=== PATIENT | male | born 1960 | race Caucasian/White ===

== ENCOUNTER 2020-09-27 08:42 | Outpatient (REF) | payer OTHER, SELFPAY ==
[2020-09-27 09:36] LABS: Basophils Percent Auto 0.7 % (0-2); Eosinophils Absolute Auto 0.2 X10*3/uL (0.0-0.4); Eosinophils Percent Auto 3.5 % (0-4); Hematocrit 44.5 % (42-52); Imm Gran Abs Auto 0.04 X10*3/uL (0.00-0.03); Imm Gran Pct Auto 0.7 % (0.0-0.4); Lymphocytes Absolute Auto 1.2 X10*3/uL (1.2-4.9); Lymphocytes Percent Auto 21.6 % (20-40); Mean Corpuscular HGB Conc 33.7 g/dl (31.0-36.0); Mean Corpuscular Hemoglobin 32.1 pg (27.0-33.0); Mean Corpuscular Volume 95.3 fL (80-98); Mean Platelet Volume 9.6 fL (9.4-12.4); Monocytes Absolute Auto 0.5 X10*3/uL (0.1-1.2); Neutrophils Absolute Auto 3.8 X10*3/uL (2.0-8.3); Neutrophils Percent Auto 65.5 % (45-73); Platelet Count 155 X10*3/uL (160-400); Red Blood Count 4.67 X10*6/uL (4.60-5.80); Red Cell Distribution Width 13.1 % (11.0-16.0); White Blood Count 5.7 X10*3/uL (4.8-10.8)
[2020-09-27 09:37] LABS: MANUAL DIFF FLAG NO
[2020-09-27 10:03] LABS: Estimated Average Glucose 111 mg/dL; Hemoglobin A1c % 5.5 %
[2020-09-27 10:08] LABS: Alanine Aminotransferase 30 U/L (0-40); Albumin Level 4.2 g/dL (3.5-5.0); Alkaline Phosphatase 30 U/L (39-117); Anion Gap 13 (12-20); Aspartate Amino Transferase 37 U/L (5-37); Bilirubin Total 0.9 mg/dL (0.0-1.0); Blood Urea Nitrogen 12 mg/dL (9-16); Calcium 9.3 mg/dL (8.4-10.2); Carbon Dioxide 25 mmol/L (22-29); Chloride 104 mmol/L (96-108); Cholesterol 198 mg/dL; Estimated Glomerular Filt Rate > 60; Glucose Random 138 mg/dL (60-115); HDL Cholesterol 28 mg/dL; LDL Cholesterol Calculated 114 mg/dl; Sodium 138 mmol/L (135-145); Triglycerides 282 mg/dL
[2020-09-27 10:35] LABS: Creatinine Urine 206.97 mg/dL; Microalbum/Creatinine Ratio Ur 9.1 ug/mg cr
[2020-09-27 10:39] LABS: Free T4 (Free Thyroxine) 0.97 ng/dL (0.71-1.85); Prostate Specific Antigen Scr 4.02 ng/mL (<0.05-4.0); Thyroid Stimulating Hormone 2.42 uIU/mL (0.32-4.0); Vitamin D 25-OH Total 16.6 ng/mL (>30)
[2020-09-27 11:21] LABS: Folate > 20.0 ng/mL (> or = 4.0); Vitamin B12 421 pg/mL (200-900)
== END 2020-09-27 08:43 | disposition home or self-care (01) ==
LOC: HO.LAB 08:42
PROVIDERS: PCP Internal Medicine; Visit Provider Internal Medicine
DX: E55.9 Vitamin D deficiency, unspecified (principal); I10 Essential (primary) hypertension; E78.00 Pure hypercholesterolemia, unspecified; E11.65 Type 2 diabetes mellitus with hyperglycemia; E53.8 Deficiency of other specified B group vitamins
CPT/HCPCS: 36415; 80053; 80061; 82043; 82306; 82607; 82746; 83036; 84153; 84439; 84443; 85025

== ENCOUNTER 2020-10-19 10:39 | Day surgery (SDC) | payer OTHER, SELFPAY ==
--- NOTE | 2020-10-18 09:49 | HO.ANESPROP2 ---
Documented by User: Charleen Leidy 10/18/20 09:51 HPI - Anesthesia Eval Consult details Narrative: 60yo M for Colonoscopy [facility] Past Medical History Medical History (Updated 10/19/20 @ 11:00 by Francesca Bennett RN) Cholelithiasis COPD (chronic obstructive pulmonary disease) Essential tremor Fatty liver Folic acid deficiency Hypercholesterolemia Hypertension Psoriasis Tobacco abuse Toe fracture, left Tubular adenoma of colon Vitamin D deficiency Family History Family History (Updated 06/29/20 @ 15:32 by SINDHU Kerr) Father No problems noted. Mother No problems noted. Son No problems noted. Daughter No problems noted. Surgical History Surgical History History of colon resection Social History Social History (Updated 09/01/20 @ 16:12 by Carol Morales MD) Alcohol intake: current Smoking Status: Current every day smoker Packs Per Day: 1 Years Smoked: start 16 years old Have you been hit, kicked, punched, or otherwise hurt by someone within the past year? If so, by whom?: No Advance Directives: No Advance Directives Information Provided: Yes Recently lost weight without trying: No Meds Allergies Allergy/AdvReac Type Severity Reaction Status Date / Time No Known Allergies Allergy Mild NONE Unverified 09/01/20 16:09 Home Medications Medication Instructions Recorded Confirmed Type clobetasol 0.05 % topical gel 1 applic TOPICAL BID 06/29/20 09/01/20 History fenofibrate 160 mg tablet 160 mg PO DAILY 06/29/20 09/01/20 History Exam Exam Date and Time: October 18, 2020 0949 Pertinent Lab Results Pertinent Lab Results: Laboratory Tests 09/27/20 09:03 Hemoglobin A1c % 5.5 Assessment and Plan Assessment Anesthesia Assessment: Chart Reviewed Documented by User: Osiel Terry MD 10/19/20 11:20 [facility] Past Medical History Medical History (Updated 10/19/20 @ 11:00 by Francesca Bennett RN) Cholelithiasis COPD (chronic obstructive pulmonary disease) Essential tremor Fatty liver Folic acid deficiency Hypercholesterolemia Hypertension Psoriasis Tobacco abuse Toe fracture, left Tubular adenoma of colon Vitamin D deficiency Family History Family History (Updated 06/29/20 @ 15:32 by SINDHU Kerr) Father No problems noted. Mother No problems noted. Son No problems noted. Daughter No problems noted. Surgical History Surgical History History of colon resection Social History Social History (Updated 09/01/20 @ 16:12 by Carol Morales MD) Alcohol intake: current Smoking Status: Current every day smoker Packs Per Day: 1 Years Smoked: start 16 years old Have you been hit, kicked, punched, or otherwise hurt by someone within the past year? If so, by whom?: No Advance Directives: No Advance Directives Information Provided: Yes Recently lost weight without trying: No Meds Allergies Allergy/AdvReac Type Severity Reaction Status Date / Time No Known Allergies Allergy Mild NONE Unverified 09/01/20 16:09 Home Medications Medication Instructions Recorded Confirmed Type clobetasol 0.05 % topical gel 1 applic TOPICAL BID 06/29/20 09/01/20 History fenofibrate 160 mg tablet 160 mg PO DAILY 06/29/20 09/01/20 History Exam Airway Mallampati Class: III TM Dist: >3cm Neck ROM: Full Denture: Upper Partial: Lower Loose/Missing/Broken Teeth: No Heart: RRR Lungs: NL Other: A Assessment and Plan Assessment Anesthesia Assessment: Anesthesia Plan Discussed, Smoking Cess. Discussed and Chart Reviewed Final Anesthetic Review NPO: Yes ASA Class: III Final Preanesthetic Review: No Changes in Pt Med Stat, Meds/Allgs Chart Reviewed, Consent Obtained/Reviewed and Anes Risks/Benef Reviewed Patient Risk: Intermediate Procedure Risk: Low Anesthetic Plan Anesthetic Plan: MAC: Disposition: Standard PACU
[2020-10-19 10:45] VITALS: BP 139/93; PULSE 66; RESP 18; TEMP 36.1; O2SAT 97; BMI 66.4
[2020-10-19] MEDS: Lactated Ringers 1,000 ML 100 ML IVCONT (11:09)
[2020-10-19 11:30] VITALS: BMI 30.1
[2020-10-19 12:15] VITALS: BP 114/76; PULSE 78; RESP 16; TEMP 37; O2SAT 100
--- NOTE | 2020-10-19 12:17 | PM.OP ---
Brief Operative Note Date of Service: 10/19/20 Pre-op diagnosis: Heme + stool Post-op diagnosis: other (Colon polyps) Procedure: Colonoscopy to cecum and TI with snare polypectomy, and biopsy and removal of polyp Surgeon: Marco Antonio Carrero Anesthesia: MAC Estimated blood loss (mL): 3.0 Pathology: other (A. Cecal polyps B. Ascending colon polyps C. Polyps at 40cm D. Polyp at 30cm) Condition: stable Disposition: PACU
[2020-10-19 12:30] VITALS: BP 131/81; PULSE 53; RESP 17; TEMP 36.5; O2SAT 97
--- NOTE | 2020-10-19 12:53 | HO.POSTANES ---
Post Anesthesia Evaluation Post Anesthesia Evaluation Vital Signs: Vital Signs Temp Pulse Resp BP Pulse Ox 10/19/20 12:30 97.7 F 53 17 131/81 97 10/19/20 12:15 98.6 F 78 16 114/76 100 10/19/20 10:45 97 F 66 18 139/93 H 97 Anesthesia: Monitored Mental Status: Awake Pain Control: Satisfactory Nausea/Vomiting: None Hydration: Adequate Anesthesia-Related Issues: No Anes. Related Issues
--- NOTE | 2020-10-19 17:05 | OP_ITS ---
SURGEON: Marco Antonio Carrero MD INDICATIONS: The patient presents for evaluation of heme-positive stool. Full consent has been obtained from him for this, including risks of bleeding and perforation. PREOPERATIVE DIAGNOSIS: Heme-positive stool. POSTOPERATIVE DIAGNOSIS: PROCEDURE PERFORMED: Colonoscopy to the cecum and terminal ileum with snare polypectomy, and biopsy and removal of polyp. ESTIMATED BLOOD LOSS: COMPLICATIONS: ANESTHESIA: Monitored anesthesia care. ASSISTANTS: SPECIMENS: POSTOPERATIVE DIAGNOSES: Heme-positive stool, colon polyps, internal hemorrhoids. DESCRIPTION OF PROCEDURE: The patient was placed in the left lateral decubitus position. The digital rectal exam revealed no abnormalities. The Olympus video pediatric colonoscope was entered into the rectum and advanced easily to the cecum. Once in the cecum, I did identify cecal pouch with appendiceal orifice and a normal-appearing ileocecal valve. The terminal ileum was cannulated and appeared normal. Scope was withdrawn back in the colon. In the cecum, was a flat, but raised approximately 8 mm polyp, which was snared and recovered by suction. Just at the junction of the ascending colon and cecum, was another similar polyp, which was also snared and recovered by suction, and placed in the same container. The remainder of the cecum appeared normal. Both polypectomy sites appeared clean, without any sign of residual polyp nor bleeding. The scope was then slowly withdrawn assessing all mucosal surfaces carefully. Preparation was excellent. In the ascending colon, was a flat, but raised approximately 10 mm polyp, which was snared and recovered by suction. The polypectomy site appeared clean, without any sign of residual polyp nor bleeding. At 40 cm, were 2 flat, but raised approximately 8 mm polyps, which were each snared and recovered by suction and placed in the same container. The polypectomy site appeared clean, without any sign of residual polyp nor bleeding. At 20 cm, was a flat approximately 4 mm polyp, which was biopsied and completely removed with cold biopsy forceps. I did not visualize any other polyps, colitis, nor angiodysplasia. The anastomosis appeared to be at approximately 20 cm and appeared normal. In the rectum, scope was retroflexed visualizing small internal hemorrhoids, but no other pathology. The rectal mucosa appeared normal. The scope was straightened out and withdrawn from the patient. He tolerated the procedure well and was returned to the recovery area in stable condition. IMPRESSION: 1. Colon polyps, status post snare polypectomy, and biopsy and removal. 2. Internal hemorrhoids. PLAN: The results of the pathology will be checked. Assuming these to be tubular adenomas, I would recommend a followup colonoscopy in 5 years for further screening. He will otherwise see me on a p.r.n. basis. He was advised not to use any aspirin and NSAIDs for 1 week. This has been discussed with his . MD JOSE Nichols/CARRIE / [id number] MTDD
== END 2020-10-19 12:50 | disposition home or self-care (01) ==
PROVIDERS: PCP Internal Medicine; Visit Provider Internal Medicine
PROC: 0DJD8ZZ Inspection of Lower Intestinal Tract, Via Natural or Artificial Opening Endoscopic (ICD-10-PCS; CPT 45378; principal; 2020-10-19 12:00)
DX: R19.5 Other fecal abnormalities (principal); Z86.010 Personal history of colon polyps; D12.0 Benign neoplasm of cecum; D12.2 Benign neoplasm of ascending colon; D12.4 Benign neoplasm of descending colon; D12.5 Benign neoplasm of sigmoid colon; J44.9 Chronic obstructive pulmonary disease, unspecified; I10 Essential (primary) hypertension; F17.210 Nicotine dependence, cigarettes, uncomplicated; Z79.899 Other long term (current) drug therapy
CPT/HCPCS: 45385; 45380; 88305

== ENCOUNTER 2021-03-09 09:59 | Outpatient (REF) | payer OTHER, SELFPAY ==
[2021-03-09 11:30] LABS: Alanine Aminotransferase 49 U/L (0-40); Alkaline Phosphatase 42 U/L (39-117); Anion Gap 12 (12-20); Aspartate Amino Transferase 55 U/L (5-37); Bilirubin Total 0.6 mg/dL (0.0-1.0); Blood Urea Nitrogen 12 mg/dL (9-16); Calcium 9.4 mg/dL (8.4-10.2); Carbon Dioxide 24 mmol/L (22-29); Chloride 104 mmol/L (96-108); Cholesterol 197 mg/dL; Estimated Glomerular Filt Rate > 60; Glucose Random 131 mg/dL (60-115); HDL Cholesterol 25 mg/dL; LDL Cholesterol Calculated 112 mg/dl; Potassium 4.1 mmol/L (3.3-5.1); Sodium 136 mmol/L (135-145); Total Protein 6.8 g/dL (6.5-8.0); Triglycerides 302 mg/dL
[2021-03-09 12:12] LABS: PSA,Total (Free>4and<10) 5.67 ng/mL (0.00-4.00)
[2021-03-10 10:36] LABS: Free Prostate Spec Ag 0.7 ng/mL; Percent Free Prostate Spec Ag 15 % (calc) (>25); Prostate Specific Ag Total 4.7 ng/mL (< OR = 4.0)
== END 2021-03-09 10:00 | disposition home or self-care (01) ==
LOC: HO.LAB 09:59
PROVIDERS: PCP Internal Medicine; Visit Provider Internal Medicine
DX: Z12.5 Encounter for screening for malignant neoplasm of prostate (principal); E78.00 Pure hypercholesterolemia, unspecified; R97.20 Elevated prostate specific antigen [PSA]
CPT/HCPCS: 36415; 80053; 80061; 84153; 84154

== ENCOUNTER 2021-08-31 08:08 | Outpatient (REF) | payer OTHER, SELFPAY ==
[2021-08-31 09:17] LABS: Creatinine Urine 187.11 mg/dL
[2021-08-31 09:42] LABS: PSA,Total (Free>4and<10) 4.68 ng/mL (0.00-4.00)
[2021-09-01 12:37] LABS: Free Prostate Spec Ag 0.5 ng/mL; Percent Free Prostate Spec Ag 12 % (calc) (>25); Prostate Specific Ag Total 4.3 ng/mL (< OR = 4.0)
== END 2021-08-31 08:09 | disposition home or self-care (01) ==
LOC: HO.LAB 08:08
PROVIDERS: PCP Internal Medicine; Visit Provider Internal Medicine
DX: Z12.5 Encounter for screening for malignant neoplasm of prostate (principal); E11.65 Type 2 diabetes mellitus with hyperglycemia; R97.20 Elevated prostate specific antigen [PSA]
CPT/HCPCS: 36415; 84153; 84154

== ENCOUNTER → 2021-09-28 11:10 | Outpatient (BNVA) | payer OTHER, SELFPAY | PROVIDERS: PCP Internal Medicine; Referring Provider Internal Medicine; Visit Provider Surgery ==

== ENCOUNTER 2021-10-19 10:45 | Outpatient (REF) | payer OTHER, SELFPAY ==
[2021-10-19 10:50] VITALS: BP 164/74; PULSE 97; RESP 16; TEMP 36.2; O2SAT 98; BMI 32.3
[2021-10-19 11:23] VITALS: BP 144/66; PULSE 65; RESP 16; O2SAT 96
--- NOTE | 2021-10-19 13:37 | P.OP_ITS ---
Operative Note Operative Note Date of Service: 10/19/21 Narrative: Preoperative diagnosis: Skin cyst posterior right neck Postoperative diagnosis: Same Procedure: Excision of skin cyst posterior right neck Surgeon: Christopher Thakur MD Youth Manager: None Anesthesia: Local Indications for procedure: 61-year-old male patient with an enlarging cyst of the right posterior neck measuring approximately 1.5 cm. Patient is requested excision. Operative findings: 1.5 cm noninfected epidermal inclusion cyst posterior right neck Specimen: Cyst posterior right neck Estimated blood loss: 1 mL Complications: None Procedure details: Patient was brought to the minor surgery suite and placed in a prone position with his head turned to the right. The site of surgery was confirmed by the patient in the right posterior neck. After assuring informed consent the skin was prepped with Betadine and draped in a sterile fashion. Local anesthesia consisting 1% lidocaine with epinephrine was then infiltrated surrounding the cyst. A transverse elliptical incision was then created carried out through subcutaneous tissue and around the cyst wall. Sharp dissection was then used to dissect the cyst from the surrounding subcutaneous tissue. Lesion was completely excised and sent to pathology for further examination. After assuring adequate hemostasis with light pressure, the skin was closed using interrupted 4-0 nylon sutures. Sterile dressings consisting of 2 x 2 gauz e and Tegaderm were then applied. The patient tolerated the procedure well. Sponge, instrument, and needle counts reported as correct. Patient was discharged home in stable condition.
== END 2021-10-19 10:46 | disposition home or self-care (01) ==
LOC: HO.MS 10:45
PROVIDERS: PCP Internal Medicine; Visit Provider Surgery
PROC: (CPT 11422; principal; 2021-10-19 11:00)
DX: L72.0 Epidermal cyst (principal)
CPT/HCPCS: 11422; 88304

== ENCOUNTER → 2021-10-31 09:44 | Outpatient (BNVA) | payer OTHER, SELFPAY | PROVIDERS: PCP Internal Medicine; Referring Provider Internal Medicine; Visit Provider Surgery ==

== ENCOUNTER 2021-12-20 09:08 | Outpatient (REF) | payer OTHER, SELFPAY ==
[2021-12-20 09:24] LABS: MANUAL DIFF FLAG NO
[2021-12-20 09:36] LABS: Basophils Absolute Auto 0.1 X10*3/uL (0.0-0.2); Basophils Percent Auto 0.9 % (0-2); Eosinophils Absolute Auto 0.3 X10*3/uL (0.0-0.4); Eosinophils Percent Auto 3.9 % (0-4); Hemoglobin 14.2 g/dl (14.0-18.0); Imm Gran Abs Auto 0.05 X10*3/uL (0.00-0.03); Imm Gran Pct Auto 0.8 % (0.0-0.4); Lymphocytes Absolute Auto 1.5 X10*3/uL (1.2-4.9); Mean Corpuscular HGB Conc 33.8 g/dl (31.0-36.0); Mean Corpuscular Hemoglobin 30.7 pg (27.0-33.0); Mean Corpuscular Volume 90.9 fL (80.0-98.0); Mean Platelet Volume 10.1 fL (9.4-12.4); Monocytes Absolute Auto 0.4 X10*3/uL (0.1-1.2); Monocytes Percent Auto 5.7 % (2-11); Neutrophils Absolute Auto 4.4 x10*3/uL (2.0-8.3); Neutrophils Percent Auto 65.7 % (45-73); Platelet Count 155 X10*3/uL (160-400); Red Blood Count 4.62 X10*6/uL (4.60-5.80); Red Cell Distribution Width 12.2 % (11.0-16.0); White Blood Count 6.6 X10*3/uL (4.8-10.8)
[2021-12-20 10:33] LABS: Alanine Aminotransferase 63 U/L (0-40); Albumin Level 3.9 g/dL (3.5-5.0); Alkaline Phosphatase 63 U/L (39-117); Anion Gap 12 (12-20); Aspartate Amino Transferase 70 U/L (5-37); Bilirubin Total 0.9 mg/dL (0.0-1.0); Blood Urea Nitrogen 12 mg/dL (9-16); Calcium 9.8 mg/dL (8.4-10.2); Carbon Dioxide 25 mmol/L (22-29); Chloride 100 mmol/L (96-108); Cholesterol 197 mg/dL; Estimated Glomerular Filt Rate 56; Glucose Fasting 387 mg/dL (60-99); HDL Cholesterol 22 mg/dL; Potassium 4.4 mmol/L (3.3-5.1); Sodium 133 mmol/L (135-145); Total Protein 6.8 g/dL (6.5-8.0); Triglycerides 547 mg/dL
[2021-12-20 10:57] LABS: Creatinine Urine 89.19 mg/dL; Microalbum/Creatinine Ratio Ur 16.8 ug/mg cr
== END 2021-12-20 09:09 | disposition home or self-care (01) ==
LOC: HO.LAB 09:08
PROVIDERS: PCP Internal Medicine; Visit Provider Nurse Practitioner Family
DX: E11.9 Type 2 diabetes mellitus without complications (principal); E78.00 Pure hypercholesterolemia, unspecified; I10 Essential (primary) hypertension
CPT/HCPCS: 36415; 80053; 80061; 82043; 85025

== ENCOUNTER 2022-03-21 06:52 | Outpatient (REF) | payer OTHER, SELFPAY ==
[2022-03-21 07:01] LABS: MANUAL DIFF FLAG NO
[2022-03-21 07:28] LABS: Basophils Absolute Auto 0.1 X10*3/uL (0.0-0.2); Basophils Percent Auto 1.1 % (0-2); Eosinophils Absolute Auto 0.5 X10*3/uL (0.0-0.4); Eosinophils Percent Auto 6.8 % (0-4); Hematocrit 46.9 % (42.0-52.0); Hemoglobin 15.6 g/dl (14.0-18.0); Imm Gran Abs Auto 0.05 X10*3/uL (0.00-0.03); Imm Gran Pct Auto 0.8 % (0.0-0.4); Lymphocytes Absolute Auto 1.6 X10*3/uL (1.2-4.9); Lymphocytes Percent Auto 23.6 % (20-40); Mean Corpuscular HGB Conc 33.3 g/dl (31.0-36.0); Mean Corpuscular Hemoglobin 30.8 pg (27.0-33.0); Mean Corpuscular Volume 92.7 fL (80.0-98.0); Mean Platelet Volume 9.4 fL (9.4-12.4); Monocytes Absolute Auto 0.4 X10*3/uL (0.1-1.2); Monocytes Percent Auto 6.2 % (2-11); Neutrophils Percent Auto 61.5 % (45-73); Platelet Count 160 X10*3/uL (160-400); Red Blood Count 5.06 X10*6/uL (4.60-5.80); Red Cell Distribution Width 13.6 % (11.0-16.0); White Blood Count 6.6 X10*3/uL (4.8-10.8)
[2022-03-21 07:35] LABS: Estimated Average Glucose 123 mg/dL; Hemoglobin A1c % 5.9 %
[2022-03-21 07:49] LABS: Alanine Aminotransferase 23 U/L (0-40); Albumin Level 4.1 g/dL (3.5-5.0); Alkaline Phosphatase 43 U/L (39-117); Anion Gap 13 (12-20); Aspartate Amino Transferase 25 U/L (5-37); Bilirubin Total 0.7 mg/dL (0.0-1.0); Blood Urea Nitrogen 10 mg/dL (9-16); Calcium 9.6 mg/dL (8.4-10.2); Carbon Dioxide 25 mmol/L (22-29); Chloride 104 mmol/L (96-108); Cholesterol 183 mg/dL; Estimated Glomerular Filt Rate > 60; Glucose Fasting 126 mg/dL (60-99); HDL Cholesterol 27 mg/dL; LDL Cholesterol Calculated 117 mg/dl; Potassium 4.1 mmol/L (3.3-5.1); Sodium 138 mmol/L (135-145); Total Protein 6.9 g/dL (6.5-8.0); Triglycerides 196 mg/dL
[2022-03-21 08:22] LABS: PSA,Total (Free>4and<10) 4.06 ng/mL (0.00-4.00)
[2022-03-22 12:06] LABS: Free Prostate Spec Ag 0.4 ng/mL; Percent Free Prostate Spec Ag 11 % (calc) (>25); Prostate Specific Ag Total 3.8 ng/mL (< OR = 4.0)
== END 2022-03-21 06:53 | disposition home or self-care (01) ==
LOC: HO.LAB 06:52
PROVIDERS: PCP Internal Medicine; Visit Provider Nurse Practitioner Family
DX: Z12.5 Encounter for screening for malignant neoplasm of prostate (principal); I10 Essential (primary) hypertension; E78.00 Pure hypercholesterolemia, unspecified; E11.9 Type 2 diabetes mellitus without complications; R97.20 Elevated prostate specific antigen [PSA]
CPT/HCPCS: 36415; 80053; 80061; 83036; 84153; 84154; 85025

== ENCOUNTER 2022-09-17 06:42 | Outpatient (REF) | payer OTHER, SELFPAY ==
[2022-09-17 08:20] LABS: Estimated Average Glucose 103 mg/dL; Hemoglobin A1c % 5.2 %
[2022-09-17 09:10] LABS: Alanine Aminotransferase 28 U/L (0-40); Albumin Level 4.2 g/dL (3.5-5.0); Alkaline Phosphatase 26 U/L (39-117); Anion Gap 14 (12-20); Aspartate Amino Transferase 27 U/L (5-37); Blood Urea Nitrogen 15 mg/dL (9-16); Calcium 9.3 mg/dL (8.4-10.2); Carbon Dioxide 26 mmol/L (22-29); Chloride 103 mmol/L (96-108); Cholesterol 210 mg/dL; Estimated Glomerular Filt Rate > 60; Glucose Random 128 mg/dL (60-115); HDL Cholesterol 32 mg/dL; LDL Cholesterol Calculated 122 mg/dl; Potassium 4.1 mmol/L (3.3-5.1); Prostate Specific Antigen Scr 6.73 ng/mL (<0.05-4.0); Sodium 139 mmol/L (135-145); Total Protein 6.6 g/dL (6.5-8.0); Triglycerides 283 mg/dL
== END 2022-09-17 06:43 | disposition home or self-care (01) ==
LOC: HO.LAB 06:42
PROVIDERS: PCP Internal Medicine; Visit Provider Internal Medicine
DX: Z12.5 Encounter for screening for malignant neoplasm of prostate (principal); R97.20 Elevated prostate specific antigen [PSA]; E78.00 Pure hypercholesterolemia, unspecified
CPT/HCPCS: 36415; 80053; 80061; 83036; 84153

== ENCOUNTER → 2022-10-16 09:58 | Outpatient (BNVA) | payer OTHER, SELFPAY | PROVIDERS: PCP Internal Medicine; Visit Provider Nurse Practitioner Family | DX: R97.20 Elevated prostate specific antigen [PSA] (principal) ==

== ENCOUNTER 2022-10-25 10:33 | Outpatient (REF) | payer OTHER, SELFPAY ==
[2022-10-25 13:20] LABS: PSA,Total (Free>4and<10) 7.59 ng/mL (0.00-4.00)
[2022-10-26 09:53] LABS: Free Prostate Spec Ag 0.7 ng/mL; Percent Free Prostate Spec Ag 11 % (calc) (>25); Prostate Specific Ag Total 6.2 ng/mL (< OR = 4.0)
== END 2022-10-25 10:34 | disposition home or self-care (01) ==
LOC: HO.LAB 10:33
PROVIDERS: PCP Internal Medicine; Visit Provider Nurse Practitioner Family
DX: Z12.5 Encounter for screening for malignant neoplasm of prostate (principal); R97.20 Elevated prostate specific antigen [PSA]
CPT/HCPCS: 36415; 84153; 84154

== ENCOUNTER → 2022-11-09 10:29 | Outpatient (BNVA) | payer OTHER, SELFPAY | PROVIDERS: PCP Internal Medicine; Visit Provider Nurse Practitioner Family | DX: Z13.89 Encounter for screening for other disorder (principal) ==

== ENCOUNTER 2022-11-20 06:59 | Day surgery (SDC) | payer OTHER, SELFPAY ==
[2022-11-13 11:16] VITALS: BMI 29.8
[2022-11-13 12:43] VITALS: BMI 30.1
[2022-11-20 07:13] LABS: Glucose, Whole Blood 147 mg/dL (60-115)
[2022-11-20 07:22] VITALS: BP 170/96; PULSE 61; RESP 16; TEMP 36.3; O2SAT 96
[2022-11-20] MEDS: Lactated Ringers 1,000 ML 50 ML IVCONT (07:48)
--- NOTE | 2022-11-20 08:05 | P.CONAN_ITS ---
HPI - Anesthesia Eval Consult details Narrative: 62 M for prostate needle biopsy PMF Active Problems Active Problems: All Active Problems (Updated 10/16/22 @ 10:48 by TAYO King) Type 2 diabetes mellitus with hyperglycemia (Acute) PSA elevation (Acute) Tubular adenoma of colon (Acute) Skin cyst (Acute) Elevated liver enzymes (Acute) Elevated PSA (Acute) COPD (chronic obstructive pulmonary disease) (Acute) Tobacco abuse (Acute) Hypercholesterolemia (Acute) Vitamin D deficiency (Acute) Hypertension (Acute) Folic acid deficiency (Acute) Past Medical History Medical History Annual physical exam Cholelithiasis COPD (chronic obstructive pulmonary disease) Essential tremor Fatty liver Folic acid deficiency Frequency of urination Hypercholesterolemia Hypertension Psoriasis Right otitis media Tobacco abuse Toe fracture, left Tubular adenoma of colon Type 2 diabetes mellitus Vision changes Vitamin D deficiency Functional capacity: independent ambulation Family History Family History Father No problems noted. Mother No problems noted. Son No problems noted. Daughter No problems noted. Family history of problems with anesthesia: No Surgical History Surgical History (Updated 11/13/22 @ 12:42 by Sunita Rich RN) History of colon resection Hx of colonoscopy Hx of excision of dermoid cyst History of Problems with Anesthesia: No Social History Social History (Updated 11/13/22 @ 12:45 by Sunita Rich RN) Household Members: Spouse Housing: House Are you a primary child day care provider to a significant other at home: No Do you presently have visiting nurse or other home services: No Alcohol intake: current Patient Tobacco Use Status: Current everyday Tobacco user Tobacco use type: Cigarette Cigarette Packs Per Day: 1 Cigarettes Per Day: 25 Years Smoked: 50 Smoked in Last 30 Days: Yes e-Cigarette/Vaping Use: Never Used Second Hand Smoke Exposure: No Use of substances other than those prescribed or required for medical reasons: Yes Substance Use Frequency: Daily Have you been hit, kicked, punched, or otherwise hurt by someone within the past year? If so, by whom?: No Are you DNR?: No Advance Directives: No Advance Directives Information Provided: Yes Advance Directives on File: No Recently lost weight without trying: No Nutrition Risks: No Nutritional Risk service: No Current occupational status: retired Cognitive needs: No Hearing needs: No Vision needs: Yes (glasses) Meds Allergies Allergy/AdvReac Type Severity Reaction Status Date / Time simvastatin AdvReac Intermediate Diarrhea Verified 11/13/22 12:42 Active Medications: Current Medications Lactated Ringer's (Lr) 1,000 mls @ 50 mls/hr IVCONT .Q20H SALVADOR Last Admin: 11/20/22 07:48 Dose: 50 mls/hr Home Medications Medication Instructions Recorded Confirmed Last Taken Type clobetasol 0.05 % topical gel 1 applic topical BID 06/29/20 11/20/22 Unknown History Exam Exam Date and Time: November 20, 2022 0805 Height,Weight and Vital Signs: Height 5 ft 10 in Weight 95.254 kg Last Vital Signs Temp 97.4 F 11/20/22 07:22 Pulse 61 11/20/22 07:22 Resp 16 11/20/22 07:22 BP 170/96 H 11/20/22 07:22 Pulse Ox 96 11/20/22 07:22 O2 Del Method 11/20/22 07:22 Pertinent Lab Results Pertinent Lab Results: Laboratory Tests 11/20/22 07:10 POC Glucose 147 H Airway Mallampati Class: IV Denture: Upper Partial: Lower Loose/Missing/Broken Teeth: Yes (Poor dentition ) Heart: S1,S2 Lungs: diminished breath sounds Assessment and Plan Assessment Anesthesia Assessment: Anesthesia Plan Discussed and Chart Reviewed Final Anesthetic Review Family History of Problems with Anesthesia: No History of Problems with Anesthesia: No NPO: Yes ASA Class: III Final Preanesthetic Review: Meds/Allgs Chart Reviewed, Consent Obtained/Reviewed and Anes Risks/Benef Reviewed Patient Risk: Intermediate Procedure Risk: Intermediate Anesthetic Plan Anesthetic Plan: GA Disposition: Standard PACU
--- NOTE | 2022-11-20 08:24 | MHC.SHP ---
Pre-Procedural Eval Section A Date of Service: 11/20/22 The patient is an INPATIENT: No The History & Physical has been completed within 30 days and I have reviewed it.: Yes Section B Chief Complaint: Elevated prostate specific antigen [PSA] Allergies: Allergies Allergy/AdvReac Type Severity Reaction Status Date / Time simvastatin AdvReac Intermediate Diarrhea Verified 11/13/22 12:42 Plan I have reviewed the history and physical and performed a pertinent physical examination on my patient. No changes have occurred unless specified. Transrectal ultrasound guided biopsy of prostate Time Spent With Patient Time: Total time managing care of this patient today ____ minutes.
[2022-11-20 09:21] VITALS: BP 119/70; PULSE 61; RESP 16; TEMP 36.5; O2SAT 99
[2022-11-20 09:26] VITALS: BP 134/80; PULSE 66; RESP 18; O2SAT 96
[2022-11-20 09:31] VITALS: BP 139/80; PULSE 71; RESP 18; O2SAT 97
--- NOTE | 2022-11-20 09:32 | W.PM.OPN ---
Operative Note Operative Note Date of Service: 11/20/22 Narrative: PreOperative Diagnosis:? ? Elevated PSA Post Operative Diagnosis:??Elevated PSA Procedure:?1. Transrectal ultrasound guided biopsy of the prostate 12 core 2. Transrectal ultrasound measurement of prostate 3. Transrectal ultrasound guided pudendal nerve block Surgeon:?Dr Lesly Pritchard Anesthesia:? General Indications for procedure: Elevated PSA. The patient had PSA drawn on 10/25/22 at 2 different times, results (7.59 ng/mL) and (6.2ng/mL with %free 11) Procedure: After informed consent was verified the patient was brought into the procedure room, General anesthesia was instituted and he was repositioned on the procedure table in left lateral position. Patient identity confirmed. Safety pause time-out performed. Preoperative antibiotics confirmed. Digital rectal exam performed to dilate rectal sphincter, iodine mixed with lubricant jelly 30 cc placed per rectum. Ultrasound probe was placed per rectum. The prostate was visualized. The prostate was measured height 4.18 cm, width 3.77 cm, length 5.05 cm with a volume of 41.7. Prostatic calcifications were visualized. And ultrasound guided pudendal nerve block was performed using 8 mL of 1% lidocaine a 12 core biopsy was performed from the left base, left mid, left apex and right base, mid, apex 2 biopsies from each section. The ultrasound probe was removed and digital palpation of the prostate for 1-2 minutes for hemostasis was performed. The patient was brought out of general. The patient tolerated the procedure well. The patient taken to the in stable condition. The patient is instructed to complete his antibiotics and to call for any concerns. Complications: None
[2022-11-20 09:36] VITALS: BP 142/80; PULSE 61; RESP 18; O2SAT 96
[2022-11-20 09:51] VITALS: BP 132/83; PULSE 60; RESP 18; TEMP 36.1; O2SAT 96
== END 2022-11-20 10:10 | disposition home or self-care (01) ==
PROVIDERS: PCP Internal Medicine; Visit Provider Urology
PROC: (CPT 55700; principal; 2022-11-20 08:40)
DX: R97.20 Elevated prostate specific antigen [PSA] (principal); N42.9 Disorder of prostate, unspecified; R35.0 Frequency of micturition; J44.9 Chronic obstructive pulmonary disease, unspecified; I10 Essential (primary) hypertension; E78.00 Pure hypercholesterolemia, unspecified; E55.9 Vitamin D deficiency, unspecified; G25.0 Essential tremor; K80.20 Calculus of gallbladder without cholecystitis without obstruction; K76.0 Fatty (change of) liver, not elsewhere classified; E11.9 Type 2 diabetes mellitus without complications; Z79.84 Long term (current) use of oral hypoglycemic drugs; Z79.899 Other long term (current) drug therapy; Z88.8 Allergy status to other drugs, medicaments and biological substances; F17.210 Nicotine dependence, cigarettes, uncomplicated
CPT/HCPCS: 55700; 76942; 82947; 88305; 88344; J1100; J1956; J2250; J2370; J2405; J3010

== ENCOUNTER → 2022-11-29 09:44 | Outpatient (BNVA) | payer OTHER, SELFPAY | PROVIDERS: PCP Internal Medicine; Visit Provider Urology | DX: Z13.89 Encounter for screening for other disorder (principal) ==

== ENCOUNTER 2023-03-15 09:52 | Outpatient (REF) | payer OTHER, SELFPAY ==
[2023-03-15 11:22] LABS: Estimated Average Glucose 111 mg/dL; Hemoglobin A1c % 5.5 %
[2023-03-15 12:00] LABS: Alanine Aminotransferase 55 U/L (0-40); Albumin Level 4.2 g/dL (3.5-5.0); Alkaline Phosphatase 31 U/L (39-117); Anion Gap 15 (12-20); Aspartate Amino Transferase 53 U/L (5-37); Blood Urea Nitrogen 14 mg/dL (9-16); Calcium 9.9 mg/dL (8.4-10.2); Carbon Dioxide 25 mmol/L (22-29); Chloride 104 mmol/L (96-108); Cholesterol 235 mg/dL; Estimated Glomerular Filt Rate > 60; Glucose Random 154 mg/dL (60-115); HDL Cholesterol 37 mg/dL; LDL Cholesterol Calculated 136 mg/dl; Potassium 3.8 mmol/L (3.3-5.1); Sodium 140 mmol/L (135-145); Total Protein 7.3 g/dL (6.5-8.0); Triglycerides 310 mg/dL
== END 2023-03-15 09:53 | disposition home or self-care (01) ==
LOC: HO.LAB 09:52
PROVIDERS: Absent Provider Internal Medicine; PCP Internal Medicine; Visit Provider Urology
DX: E78.00 Pure hypercholesterolemia, unspecified (principal); E11.65 Type 2 diabetes mellitus with hyperglycemia
CPT/HCPCS: 36415; 80053; 80061; 83036

== ENCOUNTER → 2023-04-01 11:26 | Outpatient (BNVA) | payer OTHER, SELFPAY | PROVIDERS: Visit Provider Urology | DX: R97.20 Elevated prostate specific antigen [PSA] (principal) ==

== ENCOUNTER 2023-09-18 09:44 | Outpatient (REF) | payer OTHER, SELFPAY ==
[2023-09-18 10:02] LABS: MANUAL DIFF FLAG NO
[2023-09-18 10:39] LABS: Estimated Average Glucose 120 mg/dL; Hemoglobin A1C 152.0649 umol/L; Hemoglobin A1c % 5.8 % (<6.0)
[2023-09-18 10:54] LABS: Basophils Absolute Auto 0.1 X10*3/uL (0.0-0.2); Basophils Percent Auto 1.1 % (0-2); Eosinophils Absolute Auto 0.2 X10*3/uL (0.0-0.4); Eosinophils Percent Auto 5.3 % (0-4); Hematocrit 43.9 % (42.0-52.0); Hemoglobin 14.7 g/dl (14.0-18.0); Imm Gran Abs Auto 0.03 X10*3/uL (0.00-0.03); Imm Gran Pct Auto 0.7 % (0.0-0.4); Lymphocytes Absolute Auto 1.2 X10*3/uL (1.2-4.9); Lymphocytes Percent Auto 25.8 % (20-40); Mean Corpuscular HGB Conc 33.5 g/dl (31.0-36.0); Mean Corpuscular Hemoglobin 32.9 pg (27.0-33.0); Mean Corpuscular Volume 98.2 fL (80.0-98.0); Mean Platelet Volume 9.2 fL (9.4-12.4); Monocytes Absolute Auto 0.4 X10*3/uL (0.1-1.2); Monocytes Percent Auto 7.7 % (2-11); Neutrophils Absolute Auto 2.7 x10*3/uL (2.0-8.3); Neutrophils Percent Auto 59.4 % (45-73); Platelet Count 140 X10*3/uL (160-400); Red Blood Count 4.47 X10*6/uL (4.60-5.80); Red Cell Distribution Width 13.5 % (11.0-16.0); White Blood Count 4.5 X10*3/uL (4.8-10.8)
[2023-09-18 11:14] LABS: Alanine Aminotransferase 52 U/L (0-40); Albumin Level 4.2 g/dL (3.5-5.0); Alkaline Phosphatase 28 U/L (39-117); Anion Gap 15 (12-20); Aspartate Amino Transferase 94 U/L (5-37); Bilirubin Total 0.7 mg/dL (0.0-1.0); Blood Urea Nitrogen 14 mg/dL (9-16); Calcium 9.7 mg/dL (8.4-10.2); Carbon Dioxide 25 mmol/L (22-29); Chloride 104 mmol/L (96-108); Cholesterol 220 mg/dL (<200); Estimated Glomerular Filt Rate 58; Glucose Random 142 mg/dL (60-115); HDL Cholesterol 35 mg/dL (>40); LDL Cholesterol Calculated 127 mg/dL (<100); Sodium 140 mmol/L (135-145); Total Protein 7.4 g/dL (6.5-8.0); Triglycerides 291 mg/dL (<150)
[2023-09-18 11:21] LABS: PSA,Total (Free>4and<10) 7.63 ng/mL (0.00-4.00)
[2023-09-18 11:30] LABS: Free T4 (Free Thyroxine) 0.92 ng/dL (0.71-1.85); Thyroid Stimulating Hormone 2.63 uIU/mL (0.32-4.0)
[2023-09-19 12:24] LABS: Percent Free Prostate Spec Ag 13 % (calc) (>25); Prostate Specific Ag Total 7.7 ng/mL (< OR = 4.0)
== END 2023-09-18 09:45 | disposition home or self-care (01) ==
LOC: HO.LAB 09:44
PROVIDERS: PCP Internal Medicine; Visit Provider Internal Medicine
DX: Z12.5 Encounter for screening for malignant neoplasm of prostate (principal); N42.31 Prostatic intraepithelial neoplasia; E78.00 Pure hypercholesterolemia, unspecified
CPT/HCPCS: 36415; 80053; 80061; 83036; 84153; 84154; 84439; 84443; 85025

== ENCOUNTER 2023-09-20 10:54 | Outpatient (AMB) | payer OTHER, SELFPAY ==
[2023-09-20 10:56] VITALS: BP 156/90; PULSE 66; O2SAT 100; BMI 30.9
--- NOTE | 2023-09-20 10:56 | A.OFFPC_ITS ---
Vital Signs 09/20/23 10:56 Height 5 ft 10 in Weight 215 lb 0.8 oz BMI 30.9 BP 156/90 H Blood Pressure Location Lt brachial Position Sitting Pulse 66 Pulse Source Pulse Oximeter Pulse Oximetry (%) 100 Oxygen Delivery Method Room Air Intake Visit Reasons: Annual Exam Intake Note: Patient is here today for a physical. Prosthetic Technician Required: No Allergies finasteride Adverse Reaction (Intermediate, Verified 09/20/23 11:28) premature ejaculation simvastatin Adverse Reaction (Intermediate, Verified 09/20/23 10:57) Diarrhea Medication List - Last Reconciled 09/20/23 by Carol Morales MD blood sugar diagnostic (FreeStyle Lite Strips) USE TO TEST ONCE DAILY blood-glucose meter (FreeStyle Lite Meter kit) As directed clobetasol 0.05% 1 appl topical BID ezetimibe (Zetia) 10 mg PO DAILY fenofibrate 160 mg PO DAILY folic acid 1 mg PO DAILY FreeStyle Lancets (lancets) Test once Daily NS hydrochlorothiazide 25 mg PO DAILY labetalol 300 mg PO BID lisinopril 40 mg PO DAILY 90 days Tobacco use date assessed: 09/20/23 Fall risk assessment: No Falls in past year Last assessed Fall Risk: 09/20/23 Dental Screening Dental Screen Date: 09/20/23 Did you have a dental visit in the last 12 months?: No Did you have a dental problem in the last 6 months where you did not have access to dental care?: No HPI Annual Exam HPI Details 63-year-old obese male smoker with COPD, controlled diabetes mellitus hypertension hypercholesterolemia BPH coming in for physical exam. Last seen in February 2023. Patient just had blood work August and is here for physical exam. Patient is up-to-date with colonoscopy 2020 tubular adenoma. 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 Patient has also seen the ear nose and throat presently on finasteride and continue to follow-up with prostate number diagnosis of prostatic intraepithelial neoplasia. [facility] Medical History (Updated 09/20/23 @ 11:20 by Carol Morales MD) Type 2 diabetes mellitus Vision changes Frequency of urination Annual physical exam Right otitis media Toe fracture, left Cholelithiasis COPD (chronic obstructive pulmonary disease) Psoriasis Essential tremor Tubular adenoma of colon Fatty liver Tobacco abuse Hypercholesterolemia Vitamin D deficiency Hypertension Folic acid deficiency Surgical History Hx of colonoscopy Hx of excision of dermoid cyst History of colon resection Family History (Updated 03/20/23 @ 10:58 by Monica Ravi CMA) Father No problems noted. Mother No problems noted. Son No problems noted. Daughter No problems noted. Social History (Updated 09/20/23 @ 11:29 by Carol Morales MD) Household Members: Spouse Housing: House Are you a primary animal caretaker to a significant other at home: No Do you presently have visiting nurse or other home services: No Alcohol intake: current Comment: QD 2-3 drinks Patient Tobacco Use Status: Current everyday Tobacco user Tobacco use type: Cigarette Cigarette Packs Per Day: 1 Cigarettes Per Day: 25 Years Smoked: 50 e-Cigarette/Vaping Use: Never Used Second Hand Smoke Exposure: No service: No Current occupational status: retired Cognitive needs: No Hearing needs: No Vision needs: Yes (glasses) Questionnaire PHQ-9 Over the last 2 weeks, how often have you been bothered by any of the following problems? 1. Little interest or pleasure in doing things: not at all 2. Feeling down, depressed, or hopeless: not at all 3. Trouble falling or staying asleep, or sleeping too much: not at all 4. Feeling tired or having little energy: not at all 5. Poor appetite or overeating: not at all 6. Feeling bad about yourself - or that you are a failure or have let yourself or your family down: not at all 7. Trouble concentrating on things, such as reading the newspaper or watching television: not at all 8. Moving or speaking so slowly that other people could have noticed. Or the opposite - being so fidgety or restless that you have been moving around a lot more than usual: not at all 9. Thoughts that you would be better off or of hurting yourself in some way: not at all Total score: 0 Depression Screening Interpretation: Negative Depression Screening Done: Yes Source: Developed by Drs. Marco Antonio Christensen, Farhana Vaughn, Alfredito hicks nd colleagues, with an educational allan from [employer]. Thrive Questionnaire Date Thrive assessed: 03/20/23 AUDIT C Alcohol Use Questionnaire (AUDIT-C) 1. How often do you have a drink containing alcohol?: Monthly or less 2. How many drinks containing alcohol do you have on a typical day when you are drinking?: 1 or 2 Total Score: 1 DAVIAN-7 AMB Questionnaire DAVIAN-7 Date DAVIAN - 7 assessed: 09/20/23 Feeling nervous, anxious, or on edge: 0 = Not at all Not being able to stop or control worryin = Not at all Worrying too much about different things: 0 = Not at all Trouble relaxin = Not at all Being so restless that it is hard to sit still: 0 = Not at all Becoming easily annoyed or irritable: 0 = Not at all Feeling afraid as if something awful might happen: 0 = Not at all Total DAVIAN-7 score (0-4 normal; 5-9 mild; 10-14 moderate; 15-21 severe): 0 Source: Developed by Drs. Marco Antonio Christensen, Farhana Vaughn, Alfredito Martinez and colleagues, with an educational allan from [employer]. Review of Systems Const Denies poor appetite and Denies weakness Eyes Denies no additional complaints ENT Reports Normal hearing present, Denies dizziness, Denies nasal congestion, Denies tinnitus and Denies sore throat Card Denies chest pain, Denies syncope, Denies rapid heart rate and Denies dyspnea Resp Denies cough and Denies dyspnea GI Denies change in stool character, Reports constipation, Denies diarrhea, Denies nausea and Denies vomiting Denies dysuria and Denies urinary frequency Neuro Reports Normal hearing present, Denies confusion, Denies dizziness, Denies syncope and Denies weakness Psych Denies confusion Physical exam (Primary Care) Vital Signs: Last Vital Signs Pulse 66 09/20/23 10:56 BP 156/90 H 09/20/23 10:56 Pulse Ox 100 09/20/23 10:56 Oxygen Delivery Method Room Air 09/20/23 10:56 BMI result Body Mass Index 30.9 Tobacco/Smoking Status: Tobacco use Status Tobacco use date assessed 09/20/23 09/20/23 10:57 Patient Tobacco Use Status Current everyday Tobacco 09/20/23 11:29 Tobacco use type Cigarette 09/20/23 11:29 e-Cigarette/Vaping Use Never Used 09/20/23 11:29 PHQ-9: PHQ-9 Score PHQ-9: Total score 0 09/20/23 11:22 Depression Screening Interpretation: Negative Thrive Assessment: Date of Thrive Assessment Date Thrive assessed 03/20/23 09/20/23 10:57 Const General: No confusion Orientation/consciousness: No confusion HENMT Head: Yes normocephalic Ears: external ears normal and TM's normal bilaterally Face and sinus: Yes normal facial exam Mouth: moist mucous membranes Throat: Yes tonsils normal Eyes Conjunctivae: conjunctivae normal Pupils: Equal, round and reactive pupils present and Pupil accommodation reflex normal Direct Ophthalmoscopy: normal light reflex Neck Neck: No lymphadenopathy Thyroid: Thyroid normal Chest Chest palpation & inspection: normal inspection of the chest Resp Effort & Inspection: normal respiratory effort and no audible wheezes Auscultation: clear to auscultation bilaterally, no crackles, no wheezes and lung sounds not diminished Cardio Rate: regular rate Rhythm: regular rhythm Peripheral pulses: radial pulses present and dorsalis pedis present GI Other: decline Palpation (GI): no masses Auscultation: normal bowel sounds and normoactive bowel sounds Rectal Exam - Male: Yes deferred Other: pin prick and pedal pulse normal Male General Exam: Yes normal external exam Skin General skin exam: no rashes or lesions noted Rashes: no rashes Neuro General: No confusion Cranial nerves: Yes Equal, round and reactive pupils present and Yes Normal hearing present Cognition (Neuro): normal cognition Gait exam (Neuro): Normal gait present Motor exam (neuro): 5/5 motor strength present throughout Deep tendon reflexes (DTR's): Right brachioradialis reflex intensity grade: 2+, Left brachioradialis reflex intensity grade: 2+, Right patellar reflex intensity grade: 2+ and Left patellar reflex intensity grade: 2+ Extrem General: No edema Office Procedures Flu Questionnaire Does the patient have a severe egg allergy?: No Does the patient have severe life threatening allergies?: No Does the patient have a fever or illness today?: No Has the patient ever had Guillain-Harman Syndrome?: No Has the patient ever had any past reaction to a flu shot?: No Immunizations flu vacc [id number] 6mos up(PF) 60 mcg(15 mcgx4)/0.5 mL IM syringe Performing Provider: Carol Morales MD [facility] [place] [facility] Administered by: SINDHU Rehman on 09/20/23 11:13 Dose Route Admin Location Dispensed Lot Number Expiration Date NDC Pharmacy Intake Technician 0.5 mL IM Left Deltoid 0.5 mL [id number] 03/29/24 [id number] [employer]LA[employer]OSMITH[employer] VIS Given Date VIS Provided VIS Publication Date 09/20/23 Single Vaccine 21 Eligibility Eligibility Date Funding Source Not [facility] Eligible 09/20/23 Private Assessment and Plan Assessment & Plan (1) Prostatic intraepithelial neoplasia with adjacent atypia: Comment: 10/2022 Code(s): N42.31 - Prostatic intraepithelial neoplasia Plan: Patient follows up with Urology (2) Type 2 diabetes mellitus with hyperglycemia: Comment: No rx, Dr. Haynes Code(s): E11.65 - Type 2 diabetes mellitus with hyperglycemia Qualifiers: Diabetes mellitus press tender long goods insulin use: without chcf use Qualified Code(s): E11.65 - Type 2 diabetes mellitus with hyperglycemia Plan: Decrease the amount of carbohydrate intake, pasta, bread, rice and potatoes are all sugar and that is aside from all the sweet stuff, remember that fruits are good but they are Sweet also. Hemoglobin A1c goal of less than 7.0 presently on metformin 500 mg once a day (3) Tobacco abuse: Code(s): Z72.0 - Tobacco use Plan: Strongly advised to stop smoking (4) COPD (chronic obstructive pulmonary disease): Code(s): J44.9 - Chronic obstructive pulmonary disease, unspecified Qualifiers: COPD type: emphysema Emphysema type: unspecified Qualified Code(s): J43.9 - Emphysema, unspecified Plan: Stable advised to stop smoking! (5) Hypertension: Code(s): I10 - Essential (primary) hypertension Qualifiers: Hypertension type: essential hypertension Qualified Code(s): I10 - Essential (primary) hypertension Plan: Continue with blood pressure medication. Decrease salt intake and exercise patient on lisinopril 40 mg once a day (6) Hypercholesterolemia: Comment: Declined statin due to problem with simvastatin Code(s): E78.00 - Pure hypercholesterolemia, unspecified Plan: Avoid fried foods, chicken skin, eggs, butter margarine, pastries and meat. Be it pork or beef they have a lot of cholesterol LDL goal of less than 100 and triglyceride of less than 150 patient on fenofibrate and Zetia (7) Annual physical exam: Code(s): Z00.00 - Encounter for general adult medical examination without abnormal findings Orders: Orders Microalbumin, Random (w Creat) Today E11.65 - Type 2 diabetes mellitus with hyperglycemia Creatinine Urine Today E11.65 - Type 2 diabetes mellitus with hyperglycemia Influenza [id number] Immunization Today Z23 - Encounter for immunization Medications: New hydrochlorothiazide 25 mg PO DAILY 30 tabs 3RF I10 - Essential (primary) hypertension Changed From labetalol 600 mg (2 x 300 mg) PO ONCE 180 tabs 3RF I10 - Essential (primary) hypertension To labetalol 300 mg PO BID 180 tabs 3RF I10 - Essential (primary) hypertension Discontinued finasteride Discontinued Reason: Doctor's Order 5 mg PO DAILY 90 days 90 tabs 1RF prostate cancer C61 - Malignant neoplasm of prostate Coding Level of Care Code Est Pt Prev Care >65y(47716) Diagnoses Prostatic intraepithelial neoplasia with adjacent atypia N42.31 Type 2 diabetes mellitus with hyperglycemia, without long-term current use of insulin E11.65 Diabetes mellitus chcf insulin use: without press tender long goods use Tobacco abuse Z72.0 Pulmonary emphysema, unspecified emphysema type J43.9 COPD type: emphysema Emphysema type: unspecified Essential hypertension I10 Hypertension type: essential hypertension Hypercholesterolemia E78.00 Annual physical exam Z00.00 Additional Codes PHQ-9 - 23466 - PHQ-9 Billing: ([id number])
== END 2023-09-20 11:50 | disposition home or self-care (01) ==
PROVIDERS: Visit Provider Internal Medicine
DX: Z00.00 Encounter for general adult medical examination without abnormal findings (principal); E11.65 Type 2 diabetes mellitus with hyperglycemia; J43.9 Emphysema, unspecified; Z23 Encounter for immunization; N42.31 Prostatic intraepithelial neoplasia; Z72.0 Tobacco use; I10 Essential (primary) hypertension; E78.00 Pure hypercholesterolemia, unspecified
CPT/HCPCS: 90471; 90686; 99397

== ENCOUNTER → 2023-11-21 10:07 | Outpatient (BNVA) | payer OTHER, SELFPAY | PROVIDERS: PCP Internal Medicine; Visit Provider Urology ==

== ENCOUNTER 2023-12-19 10:59 | Outpatient (REF) | payer OTHER, SELFPAY ==
[2023-12-19 12:57] LABS: Creatinine Urine 142.58 mg/dL; Microalbum/Creatinine Ratio Ur 15.4 ug/mg cr (<30)
== END 2023-12-19 11:00 | disposition home or self-care (01) ==
LOC: HO.LAB 10:59
PROVIDERS: PCP Internal Medicine; Visit Provider Internal Medicine
DX: E11.65 Type 2 diabetes mellitus with hyperglycemia (principal)
CPT/HCPCS: 82043; 82570

== ENCOUNTER 2023-12-23 10:54 | Outpatient (AMB) | payer OTHER, SELFPAY ==
[2023-12-23 10:56] VITALS: BP 112/70; PULSE 68; O2SAT 99
--- NOTE | 2023-12-23 10:56 | A.OFFPC_ITS ---
Vital Signs 12/23/23 10:56 Height 5 ft 10 in Weight 209 lb BMI 30.0 BP 112/70 Blood Pressure Location Lt brachial Position Sitting Pulse 68 Pulse Source Pulse Oximeter Pulse Oximetry (%) 99 Oxygen Delivery Method Room Air Intake Visit Reasons: HTN, DM Intake Note: Patient is here to follow up on HTN, DM Allergies finasteride Adverse Reaction (Intermediate, Verified 12/23/23 10:57) premature ejaculation simvastatin Adverse Reaction (Intermediate, Verified 12/23/23 10:57) Diarrhea Tobacco use date assessed: 12/23/23 Fall risk assessment: No Falls in past year Last assessed Fall Risk: 12/23/23 Dental Screening Dental Screen Date: 12/23/23 Did you have a dental visit in the last 12 months?: No Did you have a dental problem in the last 6 months where you did not have access to dental care?: No HPI HTN, DM HPI Details 63-year-old obese male smoker with diabe galina mellitus COPD hypertension hypercholesterolemia and prostate cancer last seen in August 2023. Patient add physical exam. Colon test September 2020. Patient's last complete blood work for cholesterol was done in August 2023 LDL needs to be less than 100 and triglyceride of less than 150. noted mass on the rectal area and a rash in the groin - has cystic lesion before and hot packs PFSH Medical History (Updated 12/23/23 @ 11:15 by Carol Morales MD) Type 2 diabetes mellitus Vision changes Frequency of urination Annual physical exam Right otitis media Toe fracture, left Cholelithiasis COPD (chronic obstructive pulmonary disease) Psoriasis Essential tremor Tubular adenoma of colon Fatty liver Tobacco abuse Hypercholesterolemia Vitamin D deficiency Hypertension Folic acid deficiency Surgical History Hx of colonoscopy Hx of excision of dermoid cyst History of colon resection Family History (Updated 03/20/23 @ 10:58 by Monica Ravi CMA) Father No problems noted. Mother No problems noted. Son No problems noted. Daughter No problems noted. Social History (Updated 09/20/23 @ 11:29 by Carol Morales MD) Household Members: Spouse Housing: House Are you a primary resident care supervisor to a significant other at home: No Do you presently have visiting nurse or other home services: No Alcohol intake: current Comment: QD 2-3 drinks Patient Tobacco Use Status: Current everyday Tobacco user Tobacco use type: Cigarette Cigarette Packs Per Day: 1 Cigarettes Per Day: 25 Years Smoked: 50 e-Cigarette/Vaping Use: Never Used Second Hand Smoke Exposure: No service: No Current occupational status: retired Cognitive needs: No Hearing needs: No Vision needs: Yes (glasses) Questionnaire Thrive Questionnaire Date Thrive assessed: 12/23/23 I am a: Patient What is your living situation today?: I have a steady place to live Within the past 12 months, did the food you bought not last and you didn't have the money to get more?: Never true Within the past 12 months, did you worry whether your food would run out before you got money to buy more?: Never true Do you have trouble paying for medicines?: No Do you have trouble getting transportation to medical appointments?: No Do you have trouble paying your heating and electricity bill?: No Do you have trouble taking care of your child, family member or friend?: No Do you have trouble with day-to-day activities such as bathing, preparing meals, shopping, managing finances, etc.?: No Are you currently unemployed and looking for a job?: No Are you interested in more education?: No Please select the resources that you would like help with: None Currently or been in a relationship where the following occur: no concerns reported THRIVE Score: 0 AUDIT C Alcohol Use Questionnaire (AUDIT-C) 1. How often do you have a drink containing alcohol?: Monthly or less 2. How many drinks containing alcohol do you have on a typical day when you are drinking?: 1 or 2 Total Score: 1 DAVIAN-7 AMB Questionnaire DAVIAN-7 Date DAVIAN - 7 assessed: 12/23/23 Source: Developed by Drs. Marco Antonio Christensen, Farhana Vaughn, Alfredito Martinez and colleagues, with an educational allan from [employer]. Physical exam (Primary Care) Vital Signs: Oxygen Delivery Method Room Air 12/23/23 10:56 Tobacco/Smoking Status: Tobacco use Status Tobacco use date assessed 12/23/23 12/23/23 11:01 Patient Tobacco Use Status Current everyday Tobacco 12/23/23 11:01 Tobacco use type Cigarette 12/23/23 11:01 e-Cigarette/Vaping Use Never Used 12/23/23 11:01 Thrive Assessment: Date of Thrive Assessment Date Thrive assessed 12/23/23 12/23/23 11:01 Currently or been in a relationship where the following occur: no concerns reported Const General: alert; No acute distress Eyes Conjunctivae: conjunctivae normal Resp Auscultation: clear to auscultation bilaterally Cardio Rate: regular rate Rhythm: regular rhythm GI Inspection: Yes normal to inspection Skin Other: Will area having desquamated linear rash with mild redness going to the rectal area but no masses noted Extrem General: Yes normal to inspection and No edema Results AMB Hemoglobin A1c AMB Hemoglobin A1c 6.3 % Last Edit by SINDHU Rehman on 12/23/23 11:12 Assessment and Plan Assessment & Plan (1) Type 2 diabetes mellitus with hyperglycemia: Comment: No rx, Dr. Haynes Code(s): E11.65 - Type 2 diabetes mellitus with hyperglycemia Qualifiers: Diabetes mellitus penitentiary insulin use: without penitentiary use Qualified Code(s): E11.65 - Type 2 diabetes mellitus with hyperglycemia Plan: Decrease the amount of carbohydrate intake, pasta, bread, rice and potatoes are all sugar and that is aside from all the sweet stuff, remember that fruits are good but they are Sweet also. Hemoglobin A1c goal of less than 6.5 patient has got it under diet control (2) Tobacco abuse: Code(s): Z72.0 - Tobacco use Plan: Patient is strongly advised to stop smoking! (3) COPD (chronic obstructive pulmonary disease): Code(s): J44.9 - Chronic obstructive pulmonary disease, unspecified Qualifiers: COPD type: emphysema Emphysema type: unspecified Qualified Code(s): J43.9 - Emphysema, unspecified Plan: Patient is strongly advised to stop smoking. Has not required any inhaler. (4) Hypercholesterolemia: Comment: Declined statin due to problem with simvastatin Code(s): E78.00 - Pure hypercholesterolemia, unspecified Plan: Avoid fried foods, chicken skin, eggs, butter margarine, pastries and meat. Be it pork or beef they have a lot of cholesterol LDL goal of less than 100 and triglyceride of less than 150 presently on fenofibrate and Zetia blood work done in August shows LDL of 127 and triglyceride of 291 (5) Hypertension: Code(s): I10 - Essential (primary) hypertension Qualifiers: Hypertension type: essential hypertension Qualified Code(s): I10 - Essential (primary) hypertension Plan: Continue with blood pressure medication. Decrease salt intake and exercise continuing with labetalol 300 mg twice a day lisinopril 40 mg once a day and h ydrochlorothiazide 25 mg once a day (6) Prostatic intraepithelial neoplasia with adjacent atypia: Comment: 10/2022 Code(s): N42.31 - Prostatic intraepithelial neoplasia Plan: Patient is being followed up by Urology. (7) Tinea cruris: Code(s): B35.6 - Tinea cruris Plan: clotrimazole cream sent Orders: Orders Comprehensive Met. Panel Today E78.00 - Pure hypercholesterolemia, unspecified Lipid Panel Today E78.00 - Pure hypercholesterolemia, unspecified AMB Hemoglobin A1c Today E11.65 - Type 2 diabetes mellitus with hyperglycemia Medications: New clotrimazole 1% 1 appl topical BID 4 weeks 45 grams 0RF B35.6 - Tinea cruris Coding Level of Care Code Est Pt Level 4 (41004) Diagnoses Type 2 diabetes mellitus with hyperglycemia, without long-term current use of insulin E11.65 Diabetes mellitus bed bug exterminator insulin use: without penitentiary use Tobacco abuse Z72.0 Pulmonary emphysema, unspecified emphysema type J43.9 COPD type: emphysema Emphysema type: unspecified Hypercholesterolemia E78.00 Essential hypertension I10 Hypertension type: essential hypertension Prostatic intraepithelial neoplasia with adjacent atypia N42.31 Tinea cruris B35.6
== END 2023-12-23 11:20 | disposition home or self-care (01) ==
PROVIDERS: PCP Internal Medicine; Visit Provider Internal Medicine
DX: E11.65 Type 2 diabetes mellitus with hyperglycemia (principal); Z72.0 Tobacco use; J43.9 Emphysema, unspecified; E78.00 Pure hypercholesterolemia, unspecified; I10 Essential (primary) hypertension; N42.31 Prostatic intraepithelial neoplasia; B35.6 Tinea cruris
CPT/HCPCS: 83036; 99214

== ENCOUNTER 2024-01-23 08:23 | Outpatient (AMB) | payer OTHER, SELFPAY ==
--- NOTE | 2024-01-23 08:32 | A.OFFVIS_ITS ---
Intake Visit Reasons: 6m follow up/PSA Intake Note: Patient presents today for a follow-up on PSA Results Meds- none, he stopped proscar Allergies to Antibiotic- None Blood Thinner- None PSA Results- 7.63 ng/mL 09/18/2023 PVR- 386 mL Coffee Bar Attendant Required: No Accompanied by: Self / Same As Patient Allergies finasteride Adverse Reaction (Intermediate, Verified 12/23/23 10:57) premature ejaculation simvastatin Adverse Reaction (Intermediate, Verified 12/23/23 10:57) Diarrhea Medication List - Last Reconciled 01/23/24 by Lesly Pritchard MD blood sugar diagnostic (FreeStyle Lite Strips) USE TO TEST ONCE DAILY blood-glucose meter (FreeStyle Lite Meter kit) As directed clobetasol 0.05% 1 appl topical BID clotrimazole 1% 1 appl topical BID 4 weeks ezetimibe (Zetia) 10 mg PO DAILY fenofibrate 160 mg PO DAILY folic acid 1 mg PO DAILY FreeStyle Lancets (lancets) Test once Daily NS hydrochlorothiazide 25 mg PO DAILY labetalol 300 mg PO BID lisinopril 40 mg PO DAILY 90 days HPI Comments Details: 01/23/24--Sam is here for follow up. He states he stopped the proscar as he is on so many other medications and he thought it was prescribed to treat cancer of the prostate. I reviewed the prostate biopsy pathology report and MRI results with him. The were 2 biopsies with atypia, suspicious for adenocarcino, MRI prostate - prostate volume 28 mL no worrisome lesions were visualized. Today Bladder scan PVR is elevated. 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 PSA 09/18/23--7.63 Plan discussed-incomplete bladder emptying. I will check renal and bladder ultrasound, repeat PSA, patient will likely need repeat prostate biopsy some point, repeat MRI will be helpful in the future as well as we follow his PSA numbers. Review of chart: 04/01/23--Sam is a 62-year-old male who presents to the office for discussion of MRI results. The patient was prescribed with finasteride 5 mg. He is taking the medication with benefits. MRI results reviewed--03/21/23-- no suspicious lesions noted in the prostate. Results are a PI-RADS category 2 clinically significant cancer unlikely to be present. 11/29/22--Sam is a 62 year old male patient of Dr. CHERRY. He presents to the office today for a follow up prostate biopsy. In discussion regarding family history patient reports he is adopted and is unsure if he has a family history of prostate cancer. Prostate biopsy results reviewed?11/20/22 for elevated PSA. Findings notable for left, apex and base focally atypical gland suspicious for adenocarcinoma. He denies any urinary issues or concerns. He is followed for elevated PSA. Prostate biopsy ?11/20/22 for elevated PSA. Findings notable for left, apex and base focally atypical gland suspicious for adenocarcinoma. MRI results --03/21/23-- no suspicious lesions noted in the prostate. Results are a PI-RADS category 2 clinically significant, cancer unlikely to be present. 01/23/24--Plan discussed-incomplete bladder emptying. I will check renal and bladder ultrasound, repeat PSA, patient will likely need repeat prostate biopsy some point, repeat MRI will be helpful in the future as well as we follow his PSA numbers. [facility]LY [facility] Medical History Type 2 diabetes mellitus Vision changes Frequency of urination Annual physical exam Right otitis media Toe fracture, left Cholelithiasis COPD (chronic obstructive pulmonary disease) Psoriasis Essential tremor Tubular adenoma of colon Fatty liver Tobacco abuse Hypercholesterolemia Vitamin D deficiency Hypertension Folic acid deficiency Surgical History Hx of colonoscopy Hx of excision of dermoid cyst History of colon resection Family History Father No problems noted. Mother No problems noted. Son No problems noted. Daughter No problems noted. Social History Household Members: Spouse Housing: House Are you a primary care team coordinator scheduler to a significant other at home: No Do you presently have visiting nurse or other home services: No Alcohol intake: current Comment: QD 2-3 drinks Patient Tobacco Use Status: Current everyday Tobacco user Tobacco use type: Cigarette Cigarette Packs Per Day: 1 Cigarettes Per Day: 25 Years Smoked: 50 e-Cigarette/Vaping Use: Never Used Second Hand Smoke Exposure: No service: No Current occupational status: retired Cognitive needs: No Hearing needs: No Vision needs: Yes (glasses) Review of Systems Const All systems reviewed & are unremarkable except as noted in HPI and below Reports no additional complaints Eyes Reports no additional complaints ENT Reports no additional complaints Card Reports no additional complaints Resp Reports no additional complaints GI Reports no additional complaints Reports as per HPI Musc Reports no additional complaints Skin/Breast Reports system reviewed and no additional complaints, except as documented Neuro Reports no additional complaints Psych Reports no additional complaints Endo Reports no additional complaints [place]/Lymph Reports no additional complaints Aller/Immun Reports no additional complaints Office Procedures Post Void Residual Post Residual Void Post Void Residual (PVR): [id number] Void Residual by ultrasound Results AMB Urinalysis, Automated UA Leukoctes 15 Leslie/uL Last Edit by SINDHU Schneider on 01/23/24 08:48 UA Nitrite Negative Last Edit by SINDHU Schneider on 01/23/24 08:48 UA Urobilinogen 0.2 mg/dL Last Edit by SINDHU Schneider on 01/23/24 08:4 8 UA Protein 15 mg/dL Last Edit by SINDHU Schneider on 01/23/24 08:48 UA pH 6.0 Last Edit by SINDHU Schneider on 01/23/24 08:48 UA Blood 0 Faraz/uL Last Edit by SINDHU Schneider on 01/23/24 08:48 UA Specific [place] 1.020 Last Edit by SINDHU Schneider on 01/23/24 08: 48 UA Ketone Negative Last Edit by SINDHU Schneider on 01/23/24 08:48 UA Bilirubin 0 mg/dL Last Edit by SINDHU Schneider on 01/23/24 08:48 UA Glucose 250 mg/dL Last Edit by SINDHU Schneider on 01/23/24 08:48 1+ Alexander Frank 01/23/24 08:48 Results Reviewed Results Reviewed: Laboratory Last Values Urine pH (Auto) 6.0 01/23/24 08:36 Specific [place] (Auto) 1.020 01/23/24 08:36 Urine Protein (Auto) 15 mg/dL 01/23/24 08:36 Glucose (UA)(Auto) 250 mg/dL 01/23/24 08:36 Urine Ketones (Auto) Negative 01/23/24 08:36 Urine Blood (Auto) 0 Faraz/uL 01/23/24 08:36 Urine Nitrite (Auto) Negative 01/23/24 08:36 Urine Bilirubin (Auto) 0 mg/dL 01/23/24 08:36 Urine Urobilinogen (Auto) 0.2 mg/dL 01/23/24 08:36 Leukocyte Esterase (Auto) 15 Leslie/uL 01/23/24 08:36 Assessment & Plan Assessment & Plan (1) Elevated PSA: Code(s): R97.20 - Elevated prostate specific antigen [PSA] Category: Medical (2) Atypical small acinar proliferation of prostate: Code(s): N42.32 - Atypical small acinar proliferation of prostate Category: Medical (3) Prostatic intraepithelial neoplasia with adjacent atypia: Comment: 10/2022 Code(s): N42.31 - Prostatic intraepithelial neoplasia Category: Medical (4) PSA elevation: Comment: Transrectal ultrasound done Dr. Bryson gonzalez October 2022 Code(s): R97.20 - Elevated prostate specific antigen [PSA] Category: Medical (5) Incomplete bladder emptying: Code(s): R33.9 - Retention of urine, unspecified Category: Medical Plan Plan discussed-incomplete bladder emptying. I will check renal and bladder ultrasound, repeat PSA, patient will likely need repeat prostate biopsy some point, repeat MRI will be helpful in the future as well as we follow his PSA numbers. Orders: Orders AMB Urinalysis Automated Today Z13.9 - Encounter for screening, unspecified PSA,Total (Free>4and<10) Today R97.20 - Elevated prostate specific antigen [PSA] AMB Post Void Residual by ultrasound Today N39.8 - Other specified disorders of urinary system US retroperitoneal comp Today R33.9 - Retention of urine, unspecified Patient Instructions: The patient had an opportunity to ask questions regarding treatment plan. All questions were answered. Imaging, Laboratory studies and physical exam results were discussed and reviewed in detail. No major barriers to understanding were identified. The patient expressed understanding and agreement with the above treatment plan. The patient is aware they should contact our office by phone for worsening of their current condition or the appearance of new symptoms. Compliance is encouraged with any medications and followup testing that is ordered. It is a privilege to be allowed the opportunity to participate in the urologic care of your patient. If you have any questions or concerns regarding treatment for the above conditions please do not hesitate to contact me. The office telephone contact is [phone]. This note is constructed in part using voice recognition software. While every effort has been made to ensure accuracy service order dispatcher errors may have been included. Yours sincerely, Lesly Pritchard MD Coding Level of Care Code Est Pt Level 4 (22368) Diagnoses Elevated PSA R97.20 Atypical small acinar proliferation of prostate N42.32 Prostatic intraepithelial neoplasia with adjacent atypia N42.31 Incomplete bladder emptying R33.9 CPT Codes Post Residual Void - PVR CPT Code: 99152-Qqzk Void Residual by ultrasound ( [id number])
== END 2024-01-23 09:20 | disposition home or self-care (01) ==
PROVIDERS: PCP Internal Medicine; Visit Provider Urology
DX: R97.20 Elevated prostate specific antigen [PSA] (principal); N42.32 Atypical small acinar proliferation of prostate; N42.31 Prostatic intraepithelial neoplasia; R33.9 Retention of urine, unspecified; Z13.9 Encounter for screening, unspecified
CPT/HCPCS: 99214

== ENCOUNTER → 2024-01-23 08:23 | Outpatient (BNVA) | payer OTHER, SELFPAY | PROVIDERS: PCP Internal Medicine; Visit Provider Urology | DX: R97.20 Elevated prostate specific antigen [PSA] (principal); N42.32 Atypical small acinar proliferation of prostate; N42.31 Prostatic intraepithelial neoplasia; R33.9 Retention of urine, unspecified; N39.8 Other specified disorders of urinary system | CPT/HCPCS: 51798; 81003 ==

== ENCOUNTER 2024-03-19 10:44 | Outpatient (REF) | payer OTHER, SELFPAY ==
--- NOTE | ~2024-03-19 | US_ITS ---
EXAMINATION: US RETROPERITONEAL COMPLETE (RENAL) CLINICAL INFORMATION: Urinary retention. COMPARISON: MR pelvis 03/21/2023. TECHNIQUE: Real-time imaging of the kidneys and bladder. FINDINGS: RIGHT KIDNEY: 10.5 x 5.5 x 5.9 cm (SAG x AP x TRV). The kidney is normal in size, contour, and echogenicity. Renal cortical thickness is normal. No calculi or focal parenchymal lesions. No hydronephrosis. LEFT KIDNEY: 11.3 x 6.1 x 6.0 cm (SAG x AP x TRV). The kidney is normal in size, contour, and echogenicity. Renal cortical thickness is normal. No calculi or focal parenchymal lesions. No hydronephrosis. BLADDER: Well distended and normal. Bilateral ureteral jets are demonstrated. Prevoid bladder volume is 367 mL. Postvoid bladder volume is 334 mL. The prostate is moderately enlarged at 44.5 mL. There is a 4.5 x 3.6 x 4.5 cm hypoechoic solid-appearing mass adjacent to the seminal vesicle above the level of the prostate. When comparison is made to the prior MRI/MRA, it is apparent that multiple bladder diverticula were present in this region - this may represent a bladder diverticula containing debris although the communication with the bladder itself is not demonstrated on this exam. US/US retroperitoneal comp IMPRESSION: 1. Normal-appearing kidneys. 2. Large post void residual with moderate BPH. 3. A 4.5 cm hypoechoic mass adjacent to the seminal vesicle. This may represent a bladder diverticula containing debris although the communication with the bladder itself is not demonstrated on this exam. CT scan of the pelvis with and without contrast would be useful for further evaluation.
== END 2024-03-19 10:45 | disposition home or self-care (01) ==
LOC: HO.US 10:44
PROVIDERS: PCP Internal Medicine; Visit Provider Urology
DX: R33.9 Retention of urine, unspecified (principal)
CPT/HCPCS: 76770

== ENCOUNTER 2024-03-23 11:41 | Outpatient (AMB) | payer OTHER, SELFPAY ==
--- NOTE | 2024-03-23 11:49 | A.OFFVIS_ITS ---
Intake Visit Reasons: 2m/US/PSA Intake Note: Patient is Present for PVR/us/psa Urology Med:none Antibiotic Allergy:none Blood Thinner:none Last PVR:560 Todays PVR:223 Color Receiver Required: No Allergies finasteride Adverse Reaction (Intermediate, Verified 03/23/24 12:03) premature ejaculation simvastatin Adverse Reaction (Intermediate, Verified 03/23/24 12:03) Diarrhea HPI Comments Details: 03/23/24--Here for followup for elevated PSA, he had prosate biospy 11/20/22. Findings notable for left, apex and base focally atypical gland suspicious for adenocarcinoma. MRI prostate 03/21/23-- no suspicious lesions noted in the prostate. Results are a PI-RADS category 2 clinically significant cancer unlikely to be present. He did not have repeat PSA. A renal bladder ultrasound was done which noted indeterminate findings of possible cyst in the seminal vesicles, this was not identified on prior MRI which is a more reliable test for the pelvis. Finasteride sexual side effects. Patient feels like he is urinating well does not want any medication Discussed ultrasound results no hydronephrosis bladder diverticuli PSA in 6 months Review of chart: 01/23/24--Sam is here for follow up. He states he stopped the proscar as he is on so many other medications and he thought it was prescribed to treat cancer of the prostate. I reviewed the prostate biopsy pathology report and MRI results with him. The were 2 biopsies with atypia, suspicious for adenocarcino, MRI prostate - prostate volume 28 mL no worrisome lesions were visualized. Today Bladder scan PVR is elevated. 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 PSA 09/18/23--7.63 Plan discussed-incomplete bladder emptying. I will check renal and bladder ultrasound, repeat PSA, patient will likely need repeat prostate biopsy some point, repeat MRI will be helpful in the future as well as we follow his PSA numbers. 04/01/23--Sam is a 62-year-old male who presents to the office for discussion of MRI results. The patient was prescribed with finasteride 5 mg. He is taking the medication with benefits. MRI results reviewed--03/21/23-- no suspicious lesions noted in the prostate. Results are a PI-RADS category 2 clinically significant cancer unlikely to be present. 11/29/22--Sam is a 62 year old male patient of Dr. CHERRY. He presents to the office today for a follow up prostate biopsy. In discussion regarding family history patient reports he is adopted and is unsure if he has a family history of prostate cancer. Prostate biopsy results reviewed?11/20/22 for elevated PSA. Findings notable for left, apex and base focally atypical gland suspicious for adenocarcinoma. He denies any urinary issues or concerns. He is followed for elevated PSA. Prostate biopsy ?11/20/22 for elevated PSA. Findings notable for left, apex and base focally atypical gland suspicious for adenocarcinoma. MRI results --03/21/23-- no suspicious lesions noted in the prostate. Results are a PI-RADS category 2 clinically significant, cancer unlikely to be present. [facility] Medical History Type 2 diabetes mellitus Vision changes Frequency of urination Annual physical exam Right otitis media Toe fracture, left Cholelithiasis COPD (chronic obstructive pulmonary disease) Psoriasis Essential tremor Tubular adenoma of colon Fatty liver Tobacco abuse Hypercholesterolemia Vitamin D deficiency Hypertension Folic acid deficiency Surgical History Hx of colonoscopy Hx of excision of dermoid cyst History of colon resection Family History Father No problems noted. Mother No problems noted. Son No problems noted. Daughter No problems noted. Social History Household Members: Spouse Housing: House Are you a primary adult care provider to a significant other at home: No Do you presently have visiting nurse or other home services: No Alcohol intake: current Comment: QD 2-3 drinks Patient Tobacco Use Status: Current everyday Tobacco user Tobacco use type: Cigarette Cigarette Packs Per Day: 1 Cigarettes Per Day: 25 Years Smoked: 50 e-Cigarette/Vaping Use: Never Used Second Hand Smoke Exposure: No service: No Current occupational status: retired Cognitive needs: No Hearing needs: No Vision needs: Yes (glasses) Review of Systems Const All systems reviewed & are unremarkable except as noted in HPI and below Reports no additional complaints Eyes Reports no additional complaints ENT Reports no additional complaints Card Reports no additional complaints Resp Reports no additional complaints GI Reports no additional complaints Reports as per HPI Musc Reports no additional complaints Skin/Breast Reports system reviewed and no additional complaints, except as documented Neuro Reports no additional complaints Psych Reports no additional complaints Endo Reports no additional complaints Tiago/Lymph Reports no additional complaints Aller/Immun Reports no additional complaints Office Procedures Post Void Residual Post Residual Void Post Void Residual (PVR): 223 [id number] Void Residual by ultrasound Results Reviewed Results Reviewed: Date of Service: 03/19/24 Procedure(s): US retroperitoneal comp Accession Number(s): [id number] cc: Lesly Pritchard MD; Andrew,Carol Yost MD~ EXAMINATION: US RETROPERITONEAL COMPLETE (RENAL) CLINICAL INFORMATION: Urinary retention. COMPARISON: MR pelvis 03/21/2023. TECHNIQUE: Real-time imaging of the kidneys and bladder. FINDINGS: RIGHT KIDNEY: 10.5 x 5.5 x 5.9 cm (SAG x AP x TRV). The kidney is normal in size, contour, and echogenicity. Renal cortical thickness is normal. No calculi or focal parenchymal lesions. No hydronephrosis. LEFT KIDNEY: 11.3 x 6.1 x 6.0 cm (SAG x AP x TRV). The kidney is normal in size, contour, and echogenicity. Renal cortical thickness is normal. No calculi or focal parenchymal lesions. No hydronephrosis. BLADDER: Well distended and normal. Bilateral ureteral jets are demonstrated. Prevoid bladder volume is 367 mL. Postvoid bladder volume is 334 mL. The prostate is moderately enlarged at 44.5 mL. There is a 4.5 x 3.6 x 4.5 cm hypoechoic solid-appearing mass adjacent to the seminal vesicle above the level of the prostate. When comparison is made to the prior MRI/MRA, it is apparent that multiple bladder diverticula were present in this region - this may represent a bladder diverticula containing debris although the communication with the bladder itself is not demonstrated on this exam. US/US retroperitoneal comp IMPRESSION: 1. Normal-appearing kidneys. 2. Large post void residual with moderate BPH. 3. A 4.5 cm hypoechoic mass adjacent to the seminal vesicle. This may represent a bladder diverticula containing debris although the communication with the bladder itself is not demonstrated on this exam. CT scan of the pelvis with and without contrast would be useful for further evaluation. Collected: 11/20/22 Received: 11/20/22 Diagnosis Prostate, needle core biopsies: A.? Left lateral base:? Focal atypical crowded glands. B.? Left mid lateral:? Focal atypical crowded glands. C.? Left apex lateral:??Focal atypical glands, suspicious for adenocarcinoma. D.? Left base medial: ??Focal atypical glands, suspicious for adenocarcinoma?and high grade prostatic intraepithelial neoplasia. E.? Left mid medial:? Benign prostatic tissue. F.? Left apex medial:? Benign prostatic tissue. G.? Right base lateral:? Stroma only. H.? Right mid lateral:? Benign prostatic tissue. I.? Right apex lateral:? Stroma only. J.? Right base lateral:? Benign prostatic tissue. K.? Right mid medial:? Focal atypical crowded glands. L.? Right apex medial:? Benign prostatic tissue. Clinical History Elevated PSA Microscopic Description Microscopic sections show 2 cores (left apex lateral and left base medial) with focal crowded glands with enlarged nuclei and prominent nucleoli.? Basal cells are focally present on high molecular weight keratin and p63 immunohistochemical stains, and P504S is positive in these foci (multiplex PIN4 stain), suspicious for adenocarcinoma.? The left base medial core also shows focal glands with enlarged stratified nuclei and nucleoli with positive basal cell staining and positive P504S, compatible with high-grade prostatic intraepithelial neoplasia.? Cores from the left lateral base, left mid lateral and right mid medial show focal crowded glands with mild atypia, with PIN4 multiplex immunostains as follows:? No basal cells identified and negative P504S, basal cells identified and positive P504S, and focal basal cells with focal positive P504S, respectively.? The immunohistochemical stains are atypical, but not conclusive.? The right base lateral core shows focal glands with positive basal cell staining and weak P504S, and a benign diagnosis is favored.? Controls stain appropriately. Material Received A: Left lateral base B: Left mid lateral C: Left apex lateral D: Left base medial E: Left mid lateral F: Left apex medial G: Right base lateral H: Right mid lateral I: Right apex lateral J: Right base lateral K: Right mid medial L: Right apex medial Gross Description Received in twelve parts. Part A:? Received in formalin labeled Left lateral base is a 1.8 cm. in length and 0.1 cm. in diameter, glistening, semitranslucent, soft, thin and delicate, carmen, cylindrical thread of tissue which is submitted in toto in a single cassette labeled A. Part B:? Received in formalin labeled Left mid lateral is a? 1.6 cm. in length and 0.1 cm. in diameter, glistening, semitranslucent, soft, thin and delicate, carmen, cylindrical thread of tissue which is submitted in toto in a single cassette labeled B. Part C:? Received in formalin labeled Left apex lateral is a? 1.5 cm. in length and 0.1 cm. in diameter, glistening, semitranslucent, soft, thin and delicate, carmen, cylindrical thread of tissue which is submitted in toto in a sing le cassette labeled C. Part D:? Received in formalin labeled Left base medial is a? 1.6 cm. in length and 0.1 cm. in diameter, glistening, semitranslucent, soft, thin and delicate, carmen, cylindrical thread of tissue, which is submitted in toto in a single cassette labeled D. Part E:? Received in formalin labeled Left mid medial is a 1.5 cm. in length and 0.1 cm. in diameter, semitranslucent, soft, thin and delicate, carmen, cylindrical thread of tissue which is submitted in toto in a single cassette labeled E. Part F:? Received in formalin labeled Left apex medial is a 1.7 cm. in length and 0.1 cm. in diameter, glistening, semitranslucent, soft, thin and delicate, carmen, cylindrical thread of tissue, which is submitted in toto in a single cassette labeled F. Part G:? Received in formalin labeled Right base lateral is a 1.2 cm. in length and 0.1 cm. in diameter, glistening, semitranslucent, soft, thin and delicate, carmen, cylindrical thread of tissue, which is submitted in toto in a single cassette labeled G. Part H:? Received in formalin labeled Right mid lateral is a 1.1 cm. in length and 0.1 cm. in diameter, glistening, semitranslucent, soft, thin and delicate, carmen cylindrical thread of tissue which is submitted in toto in a single cassette labeled H. Part I:? Received in formalin labeled Right apex lateral are two glistening, semitranslucent, soft, thin and delicate, carmen, cylindrical threads of tissue measuring 0.1 and 0.7 cm. in length and 0.1 cm. in diameter, which are submitted in toto in a single cassette labeled I. Part J:? Received in formalin labeled Right base medial is a 0.7 cm. in length and 0.1 cm. in diameter, glistening, semitranslucent, soft, thin and delicate, carmen, cylindrical thread of tissue, which is submitted in toto in a single casset te labeled J. Part K:? Received in formalin labeled Right mid medial are two glistening, semitranslucent, soft, thin and delicate, carmen, cylindrical threads of tissue, measuring 0.4 and 0.8 cm. in length and 0.1 cm. in diameter, which are submitted in toto in a single cassette labeled K. Part L:? Received in formalin labeled Right apex medial are three glistening, semitranslucent, soft, thin and delicate, carmen, cylindrical threads of tissue, ranging from 0.1 - 1.0 cm. in length and 0.1 cm. in diameter which is submitted in toto in a single cassette labeled L. Assessment & Plan Assessment & Plan (1) Elevated PSA: Code(s): R97.20 - Elevated prostate specific antigen [PSA] Category: Medical (2) Atypical small acinar proliferation of prostate: Code(s): N42.32 - Atypical small acinar proliferation of prostate Category: Medical (3) Prostatic intraepithelial neoplasia with adjacent atypia: Comment: 10/2022 Code(s): N42.31 - Prostatic intraepithelial neoplasia Category: Medical (4) PSA elevation: Comment: Transrectal ultrasound done Dr. Bryson Haley October 2022 Code(s): R97.20 - Elevated prostate specific antigen [PSA] Category: Medical (5) Incomplete bladder emptying: Code(s): R33.9 - Retention of urine, unspecified Category: Medical Plan Elevated PSA. Monitor PSA Orders: Orders AMB Urinalysis Automated 03/23/24 Z13.9 - Encounter for screening, unspecified AMB Post Void Residual by ultrasound 03/23/24 R33.9 - Retention of urine, unspecified Patient Instructions: The patient had an opportunity to ask questions regarding treatment plan. The patient expressed understanding and agreement with the above treatment plan. The patient is aware they should contact our office by phone for worsening of their current condition or the appearance of new symptoms. Compliance is encouraged with any medications and followup testing that is ordered. It is a privilege to be allowed the opportunity to participate in the urologic care of your patient. If you have any questions or concerns regarding treatment for the above conditions please do not hesitate to contact me. The office telephone contact is [phone]. This note is constructed in part using voice recognition software. While every effort has been made to ensure accuracy air value tester errors may have been included. Yours sincerely, Lesly Pritchard MD Coding Level of Care Code Est Pt Level 4 (07722) Diagnoses Elevated PSA R97.20 Atypical small acinar proliferation of prostate N42.32 Prostatic intraepithelial neoplasia with adjacent atypia N42.31 Incomplete bladder emptying R33.9 CPT Codes Post Residual Void - PVR CPT Code: 96340-Jyrf Void Residual by ultrasound ([id number])
== END 2024-03-23 12:14 | disposition home or self-care (01) ==
PROVIDERS: PCP Internal Medicine; Visit Provider Urology
DX: R97.20 Elevated prostate specific antigen [PSA] (principal); N42.32 Atypical small acinar proliferation of prostate; N42.31 Prostatic intraepithelial neoplasia; R33.9 Retention of urine, unspecified
CPT/HCPCS: 99214

== ENCOUNTER → 2024-03-23 11:41 | Outpatient (BNVA) | payer OTHER, SELFPAY | PROVIDERS: PCP Internal Medicine; Visit Provider Urology | DX: R97.20 Elevated prostate specific antigen [PSA] (principal); N42.32 Atypical small acinar proliferation of prostate; N42.31 Prostatic intraepithelial neoplasia; R33.9 Retention of urine, unspecified | CPT/HCPCS: 51798 ==

== ENCOUNTER 2024-04-16 09:21 | Outpatient (REF) | payer OTHER, SELFPAY ==
[2024-04-16 11:34] LABS: PSA,Total (Free>4and<10) 10.05 ng/mL (0.00-4.00)
== END 2024-04-16 09:22 | disposition home or self-care (01) ==
LOC: HO.LAB 09:21
PROVIDERS: Absent Provider Internal Medicine; PCP Internal Medicine; Visit Provider Urology
DX: R97.20 Elevated prostate specific antigen [PSA] (principal); Z12.5 Encounter for screening for malignant neoplasm of prostate
CPT/HCPCS: 36415; 84153

== ENCOUNTER 2024-04-22 10:52 | Outpatient (AMB) | payer OTHER, SELFPAY ==
--- NOTE | 2024-04-22 11:00 | MHC.PC.OV ---
Vital Signs 04/22/24 11:01 Height 5 ft 10 in Weight 213 lb BMI 30.6 BP 132/82 Blood Pressure Location Lt brachial Position Sitting Pulse 72 Pulse Source Pulse Oximeter Pulse Oximetry (%) 97 Oxygen Delivery Method Room Air Intake Visit Reasons: DM Allergies finasteride Adverse Reaction (Intermediate, Verified 04/22/24 11:01) premature ejaculation simvastatin Adverse Reaction (Intermediate, Verified 04/22/24 11:01) Diarrhea Tobacco use date assessed: 12/23/23 Fall risk assessment: No Falls in past year Last assessed Fall Risk: 04/22/24 Dental Screening Dental Screen Date: 04/22/24 Did you have a dental visit in the last 12 months?: No Did you have a dental problem in the last 6 months where you did not have access to dental care?: No Was dental information given to patient?: Patient has dentist HPI DM HPI Details 63-year-old obese male smoker with controlled diabetes mellitus COPD hypercholesterolemia hypertension and prostatic intraepithelial neoplasia last seen in November 2023. Patient's colonoscopy is up-to-date 09/2020 received urology notes March 23 ultrasound done showing large postvoid residual with moderate BPH biopsy done in October showing focal atypical glands advised checking of prostate numbers was urinalysis. Patient is not ready to stop smoking. As for the blood work labs did not do my blood work!!!! Otherwise denies any problem with breathing as well as denies any problem with urinary symptoms. [facility] Medical History Type 2 diabetes mellitus Vision changes Frequency of urination Annual physical exam Right otitis media Toe fracture, left Cholelithiasis COPD (chronic obstructive pulmonary disease) Psoriasis Essential tremor Tubular adenoma of colon Fatty liver Tobacco abuse Hypercholesterolemia Vitamin D deficiency Hypertension Folic acid deficiency Surgical History Hx of colonoscopy Hx of excision of dermoid cyst History of colon resection Family History Father No problems noted. Mother No problems noted. Son No problems noted. Daughter No problems noted. Social History Household Members: Spouse Housing: House Are you a primary primary care sales representative to a significant other at home: No Do you presently have visiting nurse or other home services: No Alcohol intake: current Comment: QD 2-3 drinks Patient Tobacco Use Status: Current everyday Tobacco user Tobacco use type: Cigarette Cigarette Packs Per Day: 1 Cigarettes Per Day: 25 Years Smoked: 50 e-Cigarette/Vaping Use: Never Used Second Hand Smoke Exposure: No service: No Current occupational status: retired Cognitive needs: No Hearing needs: No Vision needs: Yes (glasses) Questionnaire PHQ-9 Over the last 2 weeks, how often have you been bothered by any of the following problems? 1. Little interest or pleasure in doing things: not at all 2. Feeling down, depressed, or hopeless: not at all 3. Trouble falling or staying asleep, or sleeping too much: not at all 4. Feeling tired or having little energy: not at all 5. Poor appetite or overeating: not at all 6. Feeling bad about yourself - or that you are a failure or have let yourself or your family down: not at all 7. Trouble concentrating on things, such as reading the newspaper or watching television: not at all 8. Moving or speaking so slowly that other people could have noticed. Or the opposite - being so fidgety or restless that you have been moving around a lot more than usual: not at all 9. Thoughts that you would be better off or of hurting yourself in some way: not at all Total score: 0 Depression Screening Interpretation: Negative Depression Screening Done: Yes Source: Developed by Drs. Marco Antonio Christensen, Alfredito Corley and colleagues, with an educational allan from [employer]. Thrive Questionnaire Date Thrive assessed: 12/23/23 AUDIT C Alcohol Use Questionnaire (AUDIT-C) 1. How often do you have a drink containing alcohol?: Monthly or less 2. How many drinks containing alcohol do you have on a typical day when you are drinking?: 1 or 2 Total Score: 1 DAVIAN-7 AMB Questionnaire DAVIAN-7 Date DAVIAN - 7 assessed: 12/23/23 Source: Developed by Drs. Marco Antonio Christensen, Alfredito Corley and colleagues, with an educational allan from [employer]. Physical exam (Primary Care) Vital Signs: Last Vital Signs Pulse 72 04/22/24 11:01 BP 132/82 04/22/24 11:01 Pulse Ox 97 04/22/24 11:01 Oxygen Delivery Method Room Air 04/22/24 11:01 BMI result Body Mass Index 30.6 Tobacco/Smoking Status: Tobacco use Status Tobacco use date assessed 12/23/23 04/22/24 11:02 Patient Tobacco Use Status Current everyday Tobacco 04/22/24 11:02 Tobacco use type Cigarette 04/22/24 11:02 e-Cigarette/Vaping Use Never Used 04/22/24 11:02 PHQ-9: PHQ-9 Score PHQ-9: Total score 0 04/22/24 11:25 Depression Screening Interpretation: Negative Thrive Assessment: Date of Thrive Assessment Date Thrive assessed 12/23/23 04/22/24 11:02 Const General: alert; No acute distress Eyes Conjunctivae: conjunctivae normal Resp Auscultation: clear to auscultation bilaterally Cardio Rate: regular rate Rhythm: regular rhythm GI Inspection: Yes normal to inspection Extrem General: Yes normal to inspection and No edema Results AMB Hemoglobin A1c AMB Hemoglobin A1c 6.3 % Last Edit by Monica Ravi CMA on 04/22/24 11:25 Assessment and Plan Assessment & Plan (1) Type 2 diabetes mellitus with hyperglycemia: Comment: No rx, Dr. Haynes Code(s): E11.65 - Type 2 diabetes mellitus with hyperglycemia Qualifiers: Diabetes mellitus intermediate insulin use: without terminal operations supervisor use Qualified Code(s): E11.65 - Type 2 diabetes mellitus with hyperglycemia Plan: Decrease the amount of carbohydrate intake, pasta, bread, rice and potatoes are all sugar and that is aside from all the sweet stuff, remember that fruits are good but they are Sweet also. Hemoglobin A1c goal of less than 6.5. Patient has diet control (2) Tobacco abuse: Code(s): Z72.0 - Tobacco use Plan: Patient is strongly advised to stop smoking! (3) Hypercholesterolemia: Comment: Declined statin due to problem with simvastatin Code(s): E78.00 - Pure hypercholesterolemia, unspecified Plan: Avoid fried foods, chicken skin, eggs, butter margarine, pastries and meat. Be it pork or beef they have a lot of cholesterol LDL goal of less than 100 and triglyceride of less than 150 on fenofibrate 160 mg once a day Zetia 10 mg once a day patient can not tolerate simvastatin (4) Hypertension: Code(s): I10 - Essential (primary) hypertension Qualifiers: Hypertension type: essential hypertension Qualified Code(s): I10 - Essential (primary) hypertension Plan: Continue with blood pressure medication. Decrease salt intake and exercise patient takes hydrochlorothiazide 25 mg once a day lisinopril 40 mg once a day and labetalol 300 mg twice a day (5) COPD (chronic obstructive pulmonary disease): Code(s): J44.9 - Chronic obstructive pulmonary disease, unspecified Qualifiers: COPD type: emphysema Emphysema type: unspecified Qualified Code(s): J43.9 - Emphysema, unspecified Plan: Patient is strongly advised to stop smoking! (6) Prostatic intraepithelial neoplasia with adjacent atypia: Comment: 10/2022 Code(s): N42.31 - Prostatic intraepithelial neoplasia Plan: Patient under surveillance from Urology (7) Incomplete bladder emptying: Code(s): R33.9 - Retention of urine, unspecified Plan: Declined medication and under surveillance under urology. Orders: Orders AMB Hemoglobin A1c Today Z13.9 - Encounter for screening, unspecified Comprehensive Met. Panel 3 Months E11.65 - Type 2 diabetes mellitus with hyperglycemia Free T4 (Free Thyroxine) 3 Months E11.65 - Type 2 diabetes mellitus with hyperglycemia Lipid Panel 3 Months E11.65 - Type 2 diabetes mellitus with hyperglycemia, E78.00 - Pure hypercholesterolemia, unspecified Prostate Specific Antigen Scr 3 Months E11.65 - Type 2 diabetes mellitus with hyperglycemia Complete Blood Count Auto Diff 3 Months E11.65 - Type 2 diabetes mellitus with hyperglycemia Thyroid Stimulating Hormone 3 Months E11.65 - Type 2 diabetes mellitus with hyperglycemia Microalbumin, Random (w Creat) 3 Months E11.65 - Type 2 diabetes mellitus with hyperglycemia Creatinine Urine 3 Months E11.65 - Type 2 diabetes mellitus with hyperglycemia Vitamin B12 and Folate 3 Months E11.65 - Type 2 diabetes mellitus with hyperglycemia Hemoglobin A1c 3 Months E11.65 - Type 2 diabetes mellitus with hyperglycemia Coding Level of Care Code Est Pt Level 4 (80566) Diagnoses Type 2 diabetes mellitus with hyperglycemia, without long-term current use of insulin E11.65 Diabetes mellitus intermediate insulin use: without terminal operations supervisor use Tobacco abuse Z72.0 Hypercholesterolemia E78.00 Essential hypertension I10 Hypertension type: essential hypertension Pulmonary emphysema, unspecified emphysema type J43.9 COPD type: emphysema Emphysema type: unspecified Prostatic intraepithelial neoplasia with adjacent atypia N42.31 Incomplete bladder emptying R33.9 Additional Codes PHQ-9 - 07211 - PHQ-9 Billing: ([id number])
[2024-04-22 11:01] VITALS: BP 132/82; PULSE 72; O2SAT 97; BMI 30.6
== END 2024-04-22 14:07 | disposition home or self-care (01) ==
PROVIDERS: PCP Internal Medicine; Visit Provider Internal Medicine
DX: E11.65 Type 2 diabetes mellitus with hyperglycemia (principal); J43.9 Emphysema, unspecified; Z72.0 Tobacco use; E78.00 Pure hypercholesterolemia, unspecified; I10 Essential (primary) hypertension; N42.31 Prostatic intraepithelial neoplasia; R33.9 Retention of urine, unspecified
CPT/HCPCS: 83036; 99214

== ENCOUNTER 2024-05-29 13:06 | Outpatient (AMB) | payer OTHER, SELFPAY ==
--- NOTE | 2024-05-29 13:04 | A.OFFVIS_ITS ---
Intake Visit Reasons: PSA f/u Intake Note: Patient is present forPSA F/U Urology Medication:NONE Antibiotic Allergy:SIMVASTATIN Blood Thinner:NONE Seaweed Harvester Required: No Allergies finasteride Adverse Reaction (Intermediate, Verified 05/29/24 13:05) premature ejaculation simvastatin Adverse Reaction (Intermediate, Verified 05/29/24 13:05) Diarrhea Medication List - Last Reconciled 05/29/24 by Lesly Pritchard MD blood sugar diagnostic (FreeStyle Lite Strips) USE TO TEST ONCE DAILY blood-glucose meter (FreeStyle Lite Meter kit) As directed clobetasol 0.05% 1 appl topical BID clotrimazole 1% 1 appl topical BID 4 weeks ezetimibe (Zetia) 10 mg PO DAILY fenofibrate 160 mg PO DAILY folic acid 1 mg PO DAILY FreeStyle Lancets (lancets) Test once Daily NS hydrochlorothiazide 25 mg PO DAILY labetalol 300 mg PO BID lisinopril 40 mg PO DAILY 90 days HPI Comments Details: 05/29/24--Sam presents for telehealth video follow-up regarding follow-up PSA results. The patient denies any changes in urination. I have reviewed that PSA has increased 04/16/24 10.05 ng/mL. Plan discussed repeat MRI of the prostate. The patient will need repeat prostate biopsies and would benefit from targeted MRI biopsies if lesions are identified. Review of chart: 03/23/24--Here for followup for elevated PSA, he had prosate biospy 11/20/22. Findings notable for left, apex and base focally atypical gland suspicious for adenocarcinoma. MRI prostate 03/21/23-- no suspicious lesions noted in the prostate. Results are a PI-RADS category 2 clinically significant cancer unlikely to be present. He did not have repeat PSA. A renal bladder ultrasound was done which noted indeterminate findings of possible cyst in the seminal vesicles, this was not identified on prior MRI which is a more reliable test for the pelvis. Finasteride sexual side effects. Patient feels like he is urinating well does not want any medication Discussed ultrasound results no hydronephrosis bladder diverticuli. PSA in 6 months 01/23/24--Sam is here for follow up. He states he stopped the proscar as he is on so many other medications and he thought it was prescribed to treat cancer of the prostate. I reviewed the prostate biopsy pathology report and MRI results with him. The were 2 biopsies with atypia, suspicious for adenocarcino, MRI prostate - prostate volume 28 mL no worrisome lesions were visualized. Today Bladder scan PVR is elevated. 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 PSA 09/18/23--7.63 Plan discussed-incomplete bladder emptying. I will check renal and bladder ultrasound, repeat PSA, patient will likely need repeat prostate biopsy some point, repeat MRI will be helpful in the future as well as we follow his PSA numbers. 04/01/23--Sam is a 62-year-old male who presents to the office for discussion of MRI results. The patient was prescribed with finasteride 5 mg. He is taking the medication with benefits. MRI results reviewed--03/21/23-- no suspicious lesions noted in the prostate. Results are a PI-RADS category 2 clinically significant cancer unlikely to be present. 11/29/22--Sam is a 62 year old male patient of Dr. CHERRY. He presents to the office today for a follow up prostate biopsy. In discussion regarding family history patient reports he is adopted and is unsure if he has a family history of prostate cancer. Prostate biopsy results reviewed?11/20/22 for elevated PSA. Findings notable for left, apex and base focally atypical gland suspicious for adenocarcinoma. He denies any urinary issues or concerns. He is followed for elevated PSA. Prostate biopsy ?11/20/22 for elevated PSA. Findings notable for left, apex and base focally atypical gland suspicious for adenocarcinoma. MRI results --03/21/23-- no suspicious lesions noted in the prostate. Results are a PI-RADS category 2 clinically significant, cancer unlikely to be present. [facility] Medical History Type 2 diabetes mellitus Vision changes Frequency of urination Annual physical exam Right otitis media Toe fracture, left Cholelithiasis COPD (chronic obstructive pulmonary disease) Psoriasis Essential tremor Tubular adenoma of colon Fatty liver Tobacco abuse Hypercholesterolemia Vitamin D deficiency Hypertension Folic acid deficiency Surgical History Hx of colonoscopy Hx of excision of dermoid cyst History of colon resection Family History Father No problems noted. Mother No problems noted. Son No problems noted. Daughter No problems noted. Social History Household Members: Spouse Housing: House Are you a primary healthcare technician to a significant other at home: No Do you presently have visiting nurse or other home services: No Alcohol intake: current Comment: QD 2-3 drinks Patient Tobacco Use Status: Current everyday Tobacco user Tobacco use type: Cigarette Cigarette Packs Per Day: 1 Cigarettes Per Day: 25 Years Smoked: 50 e-Cigarette/Vaping Use: Never Used Second Hand Smoke Exposure: No service: No Current occupational status: retired Cognitive needs: No Hearing needs: No Vision needs: Yes (glasses) Review of Systems Const All systems reviewed & are unremarkable except as noted in HPI and below Reports no additional complaints Eyes Reports no additional complaints ENT Reports no additional complaints Card Reports no additional complaints Resp Reports no additional complaints GI Reports no additional complaints Reports as per HPI Musc Reports no additional complaints Skin/Breast Reports system reviewed and no additional complaints, except as documented Neuro Reports no additional complaints Psych Reports no additional complaints Endo Reports no additional complaints Tiago/Lymph Reports no additional complaints Aller/Immun Reports no additional complaints Telehealth Telehealth Telehealth Platform: [facility] Location of provider rendering services: practice address Location of patient: address on file Patient Identification confirmed using: Name, : Yes Telehealth method: video Patient verbally consented to treatment: Yes Patient verbally consented to billing insurance company: Yes Patient informed of any privacy concerns related to visit: Yes Results Reviewed Results Reviewed: Date of Service: 03/19/24 US RETROPERITONEAL COMPLETE (RENAL) CLINICAL INFORMATION: Urinary retention. COMPARISON: MR pelvis 03/21/2023. TECHNIQUE: Real-time imaging of the kidneys and bladder. FINDINGS: RIGHT KIDNEY: 10.5 x 5.5 x 5.9 cm (SAG x AP x TRV). The kidney is normal in size, contour, and echogenicity. Renal cortical thickness is normal. No calculi or focal parenchymal lesions. No hydronephrosis. LEFT KIDNEY: 11.3 x 6.1 x 6.0 cm (SAG x AP x TRV). The kidney is normal in size, contour, and echogenicity. Renal cortical thickness is normal. No calculi or focal parenchymal lesions. No hydronephrosis. BLADDER: Well distended and normal. Bilateral ureteral jets are demonstrated. Prevoid bladder volume is 367 mL. Postvoid bladder volume is 334 mL. The prostate is moderately enlarged at 44.5 mL. There is a 4.5 x 3.6 x 4.5 cm hypoechoic solid-appearing mass adjacent to the seminal vesicle above the level of the prostate. When comparison is made to the prior MRI/MRA, it is apparent that multiple bladder diverticula were present in this region - this may represent a bladder diverticula containing debris although the communication with the bladder itself is not demonstrated on this exam. IMPRESSION: 1. Normal-appearing kidneys. 2. Large post void residual with moderate BPH. 3. A 4.5 cm hypoechoic mass adjacent to the seminal vesicle. This may represent a bladder diverticula containing debris although the communication with the bladder itself is not demonstrated on this exam. CT scan of the pelvis with and without contrast would be useful for further evaluation. Diagnosis Prostate, needle core biopsies: A.? Left lateral base:? Focal atypical crowded glands. B.? Left mid lateral:? Focal atypical crowded glands. C.? Left apex lateral:??Focal atypical glands, suspicious for adenocarcinoma. D.? Left base medial: ??Focal atypical glands, suspicious for adenocarcinoma?and high grade prostatic intraepithelial neoplasia. E.? Left mid medial:? Benign prostatic tissue. F.? Left apex medial:? Benign prostatic tissue. G.? Right base lateral:? Stroma only. H.? Right mid lateral:? Benign prostatic tissue. I.? Right apex lateral:? Stroma only. J.? Right base lateral:? Benign prostatic tissue. K.? Right mid medial:? Focal atypical crowded glands. L.? Right apex medial:? Benign prostatic tissue. Clinical History Elevated PSA Assessment & Plan Assessment & Plan (1) Elevated PSA: Code(s): R97.20 - Elevated prostate specific antigen [PSA] Category: Medical (2) Atypical small acinar proliferation of prostate: Code(s): N42.32 - Atypical small acinar proliferation of prostate Category: Medical (3) Prostatic intraepithelial neoplasia with adjacent atypia: Comment: 10/2022 Code(s): N42.31 - Prostatic intraepithelial neoplasia Category: Medical (4) PSA elevation: Comment: Transrectal ultrasound done Dr. Bryson Haley October 2022 Code(s): R97.20 - Elevated prostate specific antigen [PSA] Category: Medical (5) Incomplete bladder emptying: Code(s): R33.9 - Retention of urine, unspecified Category: Medical Plan MRI of the prostate. The patient will need repeat prostate biopsies and would benefit from targeted MRI biopsies if lesions are identified. Orders: Orders MR pelvis wo/w con Today N42.31 - Prostatic intraepithelial neoplasia, R97.20 - Elevated prostate specific antigen [PSA] Patient Instructions: The patient had an opportunity to ask questions regarding treatment plan. The patient expressed understanding and agreement with the above treatment plan. The patient is aware they should contact our office by phone for worsening of their current condition or the appearance of new symptoms. Compliance is encouraged with any medications and followup testing that is ordered. It is a privilege to be allowed the opportunity to participate in the urologic care of your patient. If you have any questions or concerns regarding treatment for the above conditions please do not hesitate to contact me. The office telephone contact is [phone]. This note is constructed in part using voice recognition software. While every effort has been made to ensure accuracy fisher lampara net errors may have been included. Yours sincerely, Lesly Pritchard MD Coding Level of Care Code Tele Est Pt Level 4 (62656) Diagnoses Elevated PSA R97.20 Atypical small acinar proliferation of prostate N42.32 Prostatic intraepithelial neoplasia with adjacent atypia N42.31 Incomplete bladder emptying R33.9
== END 2024-05-29 14:08 | disposition home or self-care (01) ==
LOC: HO.HUSH 13:06
PROVIDERS: PCP Internal Medicine; Visit Provider Urology
DX: R97.20 Elevated prostate specific antigen [PSA] (principal); N42.32 Atypical small acinar proliferation of prostate; N42.31 Prostatic intraepithelial neoplasia; R33.9 Retention of urine, unspecified
CPT/HCPCS: 99214

== ENCOUNTER → 2024-05-29 13:06 | Outpatient (BNVA) | payer OTHER, SELFPAY | PROVIDERS: PCP Internal Medicine; Visit Provider Urology ==

== ENCOUNTER 2024-09-09 09:56 | Outpatient (REF) | payer OTHER, SELFPAY ==
[2024-09-09 10:14] LABS: MANUAL DIFF FLAG NO
[2024-09-09 10:59] LABS: Basophils Absolute Auto 0.1 X10*3/uL (0.0-0.2); Basophils Percent Auto 1.2 % (0-2); Eosinophils Absolute Auto 0.3 X10*3/uL (0.0-0.4); Hematocrit 38.9 % (42.0-52.0); Hemoglobin 13.1 g/dl (14.0-18.0); Imm Gran Abs Auto 0.05 X10*3/uL (0.00-0.03); Imm Gran Pct Auto 0.8 % (0.0-0.4); Lymphocytes Absolute Auto 1.5 X10*3/uL (1.2-4.9); Lymphocytes Percent Auto 24.3 % (20-40); Mean Corpuscular HGB Conc 33.7 g/dl (31.0-36.0); Mean Corpuscular Hemoglobin 32.6 pg (27.0-33.0); Mean Corpuscular Volume 96.8 fL (80.0-98.0); Mean Platelet Volume 9.4 fL (9.4-12.4); Monocytes Absolute Auto 0.4 X10*3/uL (0.1-1.2); Monocytes Percent Auto 6.6 % (2-11); Neutrophils Absolute Auto 3.8 x10*3/uL (2.0-8.3); Neutrophils Percent Auto 62.1 % (45-73); Platelet Count 160 X10*3/uL (160-400); Red Blood Count 4.02 X10*6/uL (4.60-5.80); Red Cell Distribution Width 12.8 % (11.0-16.0); White Blood Count 6.1 X10*3/uL (4.8-10.8)
[2024-09-09 11:06] LABS: Estimated Average Glucose 131 mg/dL; Hemoglobin A1C 145.4383 umol/L; Hemoglobin A1c % 6.2 % (<6.0); Total Hemoglobin (HGBA1C) 3304.8476 umol/L
[2024-09-09 11:34] LABS: Alanine Aminotransferase 35 U/L (0-40); Albumin Level 3.9 g/dL (3.5-5.0); Alkaline Phosphatase 26 U/L (39-117); Anion Gap 11 (12-20); Aspartate Amino Transferase 43 U/L (5-37); Bilirubin Total 0.5 mg/dL (0.0-1.0); Blood Urea Nitrogen 15 mg/dL (9-16); Calcium 9.9 mg/dL (8.4-10.2); Carbon Dioxide 27 mmol/L (22-29); Chloride 103 mmol/L (96-108); Cholesterol 184 mg/dL (<200); Estimated Glomerular Filt Rate 49; Glucose Random 142 mg/dL (60-115); HDL Cholesterol 28 mg/dL (>40); LDL Cholesterol Calculated 101 mg/dL (<100); Potassium 3.9 mmol/L (3.3-5.1); Sodium 137 mmol/L (135-145); Total Protein 7.1 g/dL (6.5-8.0); Triglycerides 277 mg/dL (<150)
[2024-09-09 11:42] LABS: Free T4 (Free Thyroxine) 1.03 ng/dL (0.71-1.85); Thyroid Stimulating Hormone 2.78 uIU/mL (0.32-4.0)
[2024-09-09 11:45] LABS: Creatinine Urine 176.22 mg/dL; Microalbum/Creatinine Ratio Ur 10.2 ug/mg cr (<30)
[2024-09-09 12:00] LABS: Folate > 20.0 ng/mL (> or = 4.0); Prostate Specific Antigen Scr 9.16 ng/mL (<0.05-4.0); Vitamin B12 383 pg/mL (200-900)
== END 2024-09-09 09:57 | disposition home or self-care (01) ==
LOC: HO.LAB 09:56
PROVIDERS: PCP Internal Medicine; Visit Provider Internal Medicine
DX: E11.65 Type 2 diabetes mellitus with hyperglycemia (principal); E78.00 Pure hypercholesterolemia, unspecified; Z12.5 Encounter for screening for malignant neoplasm of prostate
CPT/HCPCS: 36415; 80053; 80061; 82043; 82570; 82607; 82746; 83036; 84153; 84439; 84443; 85025

== ENCOUNTER 2024-09-21 11:25 | Outpatient (AMB) | payer OTHER, SELFPAY ==
--- NOTE | 2024-09-21 11:29 | A.OFFPC_ITS ---
Vital Signs 09/21/24 11:30 Height 5 ft 10 in Weight 219 lb BMI 31.4 BP 122/72 Blood Pressure Location Lt brachial Position Sitting Pulse 77 Pulse Source Pulse Oximeter Pulse Oximetry (%) 95 Oxygen Delivery Method Room Air Intake Visit Reasons: Annual Exam Allergies finasteride Adverse Reaction (Intermediate, Verified 09/21/24 11:30) premature ejaculation simvastatin Adverse Reaction (Intermediate, Verified 09/21/24 11:30) Diarrhea Medication List - Last Reconciled 09/21/24 by Carol Morales MD blood sugar diagnostic (FreeStyle Lite Strips) USE TO TEST ONCE DAILY blood-glucose meter (FreeStyle Lite Meter kit) As directed clobetasol 0.05% 1 appl topical BID clotrimazole 1% 1 appl topical BID 4 weeks ezetimibe (Zetia) 10 mg PO DAILY fenofibrate 160 mg PO DAILY folic acid 1 mg PO DAILY FreeStyle Lancets (lancets) Test once Daily NS hydrochlorothiazide 25 mg PO DAILY labetalol 300 mg PO BID lisinopril 40 mg PO DAILY 90 days Tobacco use date assessed: 12/23/23 Fall risk assessment: No Falls in past year Last assessed Fall Risk: 09/21/24 Dental Screening Dental Screen Date: 04/22/24 HPI Annual Exam HPI Details The patient is a 64-year-old male presenting for a physical examination. He reports being aware of weight fluctuations, noting an increase from 209 lbs in November to 219 lbs recently. He has a history of hypertension managed with Lisinopril, Labralol, and Hydrochlorothiazide. He reports past adverse reactions to Finasteride, which affected libido, and intolerance to Simvastatin. The patient has been anemic with a recent blood count of 13.1, down from a stable range of 14 to 15 in previous years. The etiology of anemia is currently unclear but warrants further investigation. There are no new diagnoses or surgeries since the last visit. He has a mild cataract which is not currently affecting vision, and there is no complication from diabetes. The patient stated that he undergoes routine prostate MRI, with a recent result pending. A history of a tubular adenoma was found on a colonoscopy conducted in September 2020. Urological concerns include past prostate hypertrophy with a prostate-specific antigen reading that has mildly improved. The use of alcohol, reported at two drinks per day, raises concerns for elevated liver enzymes linked to alcohol consumption. - Patient received pneumonia vaccination during this visit. - Regular follow-up with eye doctor for cataract monitoring. - Monitoring of blood pressure with pres cribed antihypertensive agents. - Advisement on increasing water intake over sugared or non-water alternatives. - Encouragement to quit smoking to impro ve overall health. - Recommended continued diabetic monitor ing and dietary management. - Repeated renal function assessment steve nned, given mildly elevated values. - The patient reports daily alcohol cons umption, including two drinks per day. - No current engagement in a structured exercise routine. - Lives on the second floor with no expr essed mobility issues. - Primarily drinks sugar-free iced tea, with infrequent intake of water. - Reports regular visits to audiologists for hearing checks. - Cardiovascular: Denies chest pain, magda rtness of breath. - Respiratory: Denies recent cough or ad ditional respiratory issues. - General: Denies fever, dizziness, or s yncope. - Gastrointestinal: Denies heartburn, di fficulty swallowing, or changes in bowel habits. - Neurological: Reports resting tremor i n the head. - Labs: Anemia with low hemoglobin at 13 .1 g/dL. Stable thyroid and B12 levels. - Kidney function: Elevated creatinine l evel at 1.43 mg/dL. - Liver function: Mild elevation in live r enzymes, AST at 43 U/L. - Prostate-specific antigen: Mild improv ement from 10.05 to 9.16. [facility] Medical History Type 2 diabetes mellitus Vision changes Frequency of urination Annual physical exam Right otitis media Toe fracture, left Cholelithiasis COPD (chronic obstructive pulmonary disease) Psoriasis Essential tremor Tubular adenoma of colon Fatty liver Tobacco abuse Hypercholesterolemia Vitamin D deficiency Hypertension Folic acid deficiency Surgical History Hx of colonoscopy Hx of excision of dermoid cyst History of colon resection Family History Father No problems noted. Mother No problems noted. Son No problems noted. Daughter No problems noted. Social History Household Members: Spouse Housing: House Are you a primary respiratory care specialist to a significant other at home: No Do you presently have visiting nurse or other home services: No Alcohol intake: current Comment: QD 2-3 drinks Patient Tobacco Use Status: Current everyday Tobacco user Tobacco use type: Cigarette Cigarette Packs Per Day: 1 Cigarettes Per Day: 25 Years Smoked: 50 Packs Per Year: 50 Packs per year/per ci.50 e-Cigarette/Vaping Use: Never Used Second Hand Smoke Exposure: No service: No Current occupational status: retired Cognitive needs: No Hearing needs: No Vision needs: Yes (glasses) Questionnaire PHQ-9 Over the last 2 weeks, how often have you been bothered by any of the following problems? 1. Little interest or pleasure in doing things: not at all 2. Feeling down, depressed, or hopeless: not at all 3. Trouble falling or staying asleep, or sleeping too much: not at all 4. Feeling tired or having little energy: not at all 5. Poor appetite or overeating: not at all 6. Feeling bad about yourself - or that you are a failure or have let yourself or your family down: not at all 7. Trouble concentrating on things, such as reading the newspaper or watching television: not at all 8. Moving or speaking so slowly that other people could have noticed. Or the opposite - being so fidgety or restless that you have been moving around a lot more than usual: not at all 9. Thoughts that you would be better off or of hurting yourself in some way: not at all Total score: 0 Depression Screening Interpretation: Negative Depression Screening Done: Yes Source: Developed by Drs. Marco Antonio Christensen, Farhana Vaughn, Alfredito Martinez and colleagues, with an educational allan from [employer]. Thrive Questionnaire Date Thrive assessed: 12/23/23 AUDIT C Alcohol Use Questionnaire (AUDIT-C) 1. How often do you have a drink containing alcohol?: Monthly or less 2. How many drinks containing alcohol do you have on a typical day when you are drinking?: 1 or 2 Total Score: 1 DAVIAN-7 AMB Questionnaire DAVIAN-7 Date DAVIAN - 7 assessed: 12/23/23 Source: Developed by Drs. Marco Antonio Christensen, Alfredito Corley and colleagues, with an educational allan from [employer]. Review of Systems Const Denies poor appetite and Denies weakness Eyes Denies no additional complaints ENT Reports Normal hearing present, Denies dizziness, Denies nasal congestion, Denies tinnitus and Denies sore throat Card Denies chest pain, Denies syncope, Denies rapid heart rate and Denies dyspnea Resp Denies cough and Denies dyspnea GI Denies change in stool character, Reports constipation, Denies diarrhea, Denies nausea and Denies vomiting Denies dysuria and Denies urinary frequency Neuro Reports Normal hearing present, Denies confusion, Denies dizziness, Denies syncope and Denies weakness Psych Denies confusion Physical exam (Primary Care) Vital Signs: Last Vital Signs Pulse 77 09/21/24 11:30 BP 122/72 09/21/24 11:30 Pulse Ox 95 09/21/24 11:30 Oxygen Delivery Method Room Air 09/21/24 11:30 BMI result Body Mass Index 31.4 Tobacco/Smoking Status: Tobacco use Status Tobacco use date assessed 12/23/23 09/21/24 11:31 Patient Tobacco Use Status Current everyday Tobacco 09/21/24 11:31 Tobacco use type Cigarette 09/21/24 11:31 e-Cigarette/Vaping Use Never Used 09/21/24 11:31 PHQ-9: PHQ-9 Score PHQ-9: Total score 0 09/21/24 11:31 Depression Screening Interpretation: Negative Thrive Assessment: Date of Thrive Assessment Date Thrive assessed 12/23/23 09/21/24 11:31 Const General: No confusion Orientation/consciousness: No confusion HENMT Head: Yes normocephalic Ears: external ears normal and TM's normal bilaterally Face and sinus: Yes normal facial exam Mouth: moist mucous membranes Throat: Yes tonsils normal Eyes Conjunctivae: conjunctivae normal Pupils: Equal, round and reactive pupils present and Pupil accommodation reflex normal Direct Ophthalmoscopy: normal light reflex Neck Neck: No lymphadenopathy Thyroid: Thyroid normal Chest Chest palpation & inspection: normal inspection of the chest Resp Effort & Inspection: normal respiratory effort and no audible wheezes Auscultation: clear to auscultation bilaterally, no crackles, no wheezes and lung sounds not diminished Cardio Rate: regular rate Rhythm: regular rhythm Peripheral pulses: radial pulses present and dorsalis pedis present GI Other: declined pedal pulse and pin prick good , Palpation (GI): no masses Auscultation: normal bowel sounds and normoactive bowel sounds Rectal Exam - Male: Yes deferred Skin General skin exam: no rashes or lesions noted Rashes: no rashes Neuro General: No confusion Cranial nerves: Yes Equal, round and reactive pupils present and Yes Normal hearing present Cognition (Neuro): normal cognition Gait exam (Neuro): Normal gait present Motor exam (neuro): 5/5 motor strength present throughout Deep tendon reflexes (DTR's): Right brachioradialis reflex intensity grade: 2+, Left brachioradialis reflex intensity grade: 2+, Right patellar reflex intensity grade: 2+ and Left patellar reflex intensity grade: 2+ Extrem General: No edema Coding Level of Care Code Est Pt Prev Care >65y(56265) Diagnoses Annual physical exam Z00.00 Prostatic intraepithelial neoplasia with adjacent atypia N42.31 Type 2 diabetes mellitus with hyperglycemia, without long-term current use of insulin E11.65 Diabetes mellitus alf insulin use: without intermediate designer use Tobacco abuse Z72.0 Pulmonary emphysema, unspecified emphysema type J43.9 COPD type: emphysema Emphysema type: unspecified Hypercholesterolemia E78.00 Essential hypertension I10 Hypertension type: essential hypertension Renal insufficiency N28.9 Assessment & Plan Assessment & Plan (1) Annual physical exam: Code(s): Z00.00 - Encounter for general adult medical examination without abnormal findings Category: Medical (2) Prostatic intraepithelial neoplasia with adjacent atypia: Comment: 10/2022 Code(s): N42.31 - Prostatic intraepithelial neoplasia Category: Medical (3) Type 2 diabetes mellitus with hyperglycemia: Comment: No rx, Dr. Haynes Code(s): E11.65 - Type 2 diabetes mellitus with hyperglycemia Category: Medical Qualifiers: Diabetes mellitus alf insulin use: without intermediate designer use Qu alified Code(s): E11.65 - Type 2 diabetes mellitus with hyperglycemia (4) Tobacco abuse: Code(s): Z72.0 - Tobacco use Category: Medical (5) COPD (chronic obstructive pulmonary disease): Code(s): J44.9 - Chronic obstructive pulmonary disease, unspecified Category: Medical Qualifiers: COPD type: emphysema Emphysema type: unspecified Qualified Code(s): J43.9 - Emphysema, unspecified (6) Hypercholesterolemia: Comment: Declined statin due to problem with simvastatin Code(s): E78.00 - Pure hypercholesterolemia, unspecified Category: Medical (7) Hypertension: Code(s): I10 - Essential (primary) hypertension Category: Medical Qualifiers: Hypertension type: essential hypertension Qualified Code(s): I10 - Essential (primary) hypertension (8) Renal insufficiency: Code(s): N28.9 - Disorder of kidney and ureter, unspecified Category: Medical Plan - Monitor anemia and conduct further blood tests to evaluate iron levels. - Continue current antihypertensive treatment for Essential Hypertension. - Review liver function results and advise moderation of alcohol intake. - Discourage the use of Simvastatin due to previous adverse reaction. - Encourage lifestyle changes, including dietary adjustments and increasing water intake. - Arrange repeat renal function tests and consider nephrology referral if results worsen. - Continue supportive care for cataracts and routine monitoring. - Plan future colonoscopy for adenoma surveillance based on previous findings. During this visit, I discussed with the patient the progress of his anemia and the need for further lab evaluations. I noted the importance of maintaining heal thy blood pressure levels and adherence to the current pharmacological regimen. I addressed his weight fluctuations and the impact of lifestyle choices, including diet and exercise, on overall health. The patient was reminded of potential consequences associated with continued alcohol use. I provided anticipatory guidance concerning his cataracts and advised regular monitoring. We also discussed periodic reassessment of renal function and the importance of hydration. - Continue prescribed antihypertensive therapy. - Increase water intake and reduce consumption of iced tea and alcohol. - Monitor weight regularly and consider starting an exercise routine. - Schedule follow-up bloodwork for iron and renal function assessment. - Maintain regular appointments with eye and urology specialists. - Follow up with primary care for further evaluation if symptoms worsen. Orders: Orders Comprehensive Met. Panel Today N28.9 - Disorder of kidney and ureter, unspecified IRON PROFILE Today N28.9 - Disorder of kidney and ureter, unspecified Reticulocyte Count Today N28.9 - Disorder of kidney and ureter, unspecified Complete Blood Count Auto Diff Today N28.9 - Disorder of kidney and ureter, unspecified Ferritin Today N28.9 - Disorder of kidney and ureter, unspecified
[2024-09-21 11:30] VITALS: BP 122/72; PULSE 77; O2SAT 95; BMI 31.4
== END 2024-09-21 12:30 | disposition home or self-care (01) ==
PROVIDERS: PCP Internal Medicine; Visit Provider Internal Medicine
DX: Z00.00 Encounter for general adult medical examination without abnormal findings (principal); E11.65 Type 2 diabetes mellitus with hyperglycemia; J43.9 Emphysema, unspecified; N42.31 Prostatic intraepithelial neoplasia; Z72.0 Tobacco use; E78.00 Pure hypercholesterolemia, unspecified; I10 Essential (primary) hypertension; N28.9 Disorder of kidney and ureter, unspecified; Z23 Encounter for immunization

== ENCOUNTER → 2024-09-21 11:25 | Outpatient (BNVA) | payer OTHER, SELFPAY | PROVIDERS: PCP Internal Medicine; Visit Provider Internal Medicine | DX: Z00.00 Encounter for general adult medical examination without abnormal findings (principal); Z23 Encounter for immunization; N42.31 Prostatic intraepithelial neoplasia; E11.65 Type 2 diabetes mellitus with hyperglycemia; J43.9 Emphysema, unspecified; E78.00 Pure hypercholesterolemia, unspecified; I10 Essential (primary) hypertension; N28.9 Disorder of kidney and ureter, unspecified; Z72.0 Tobacco use | CPT/HCPCS: 90471; 90677; 96127 ==

== ENCOUNTER 2024-11-12 11:49 | Outpatient (AMB) | payer OTHER, SELFPAY ==
--- NOTE | 2024-11-12 11:49 | A.OFFVIS_ITS ---
Intake Visit Reasons: 6m/PSA Intake Note: Patient presents today for tele visit follow up on: PSA and MRI results Urology Medication: none Antibiotic Allergy: none Blood Thinner: none Logistics Account Manager Required: No Allergies finasteride Adverse Reaction (Intermediate, Verified 11/12/24 12:04) premature ejaculation simvastatin Adverse Reaction (Intermediate, Verified 11/12/24 12:04) Diarrhea Medication List - Last Reconciled 11/12/24 by Lesly Pritchard MD blood sugar diagnostic (FreeStyle Lite Strips) USE TO TEST ONCE DAILY blood-glucose meter (FreeStyle Lite Meter kit) As directed clobetasol 0.05% 1 appl topical BID clotrimazole 1% 1 appl topical BID 4 weeks ezetimibe (Zetia) 10 mg PO DAILY fenofibrate 160 mg PO DAILY folic acid 1 mg PO DAILY FreeStyle Lancets (lancets) Test once Daily NS hydrochlorothiazide 25 mg PO DAILY labetalol 300 mg PO BID lisinopril 40 mg PO DAILY 90 days HPI Comments Details: 11/12/2024--Sam is a 64-year-old male who has been followed for elevated PSA. He had a prostate biopsy 11/20/2022 notable for left, apex and base focally atypical gland suspicious for adenocarcinoma. MRI prostate 03/21/23-- no suspicious lesions noted in the prostate. Results are a PI-RADS category 2 clinically significant cancer unlikely to be present. Telehealth video follow- up today to discuss repeat MRI and PSA results. PSA 09/09/2024--9.16. The patient had MRI prostate reported 06/18/24 peripheral zone with inflammatory changes consistent with chronic prostatitis no suspicious lesions. Incidentally a 5 mm bladder stone noted which is clinically not significant. Will continue to monitor patient repeat PSA in 6 months and repeat MRI in 1 year. 05/29/24--Sam presents for telehealth video follow-up regarding follow-up PSA results. The patient denies any changes in urination. I have reviewed that PSA has increased 04/16/24 10.05 ng/mL. Plan discussed repeat MRI of the prostate. The patient will need repeat prostate biopsies and would benefit from targeted MRI biopsies if lesions are identified. 03/23/24--Here for followup for elevated PSA, he had prosate biospy 11/20/22. Findings notable for left, apex and base focally atypical gland suspicious for adenocarcinoma. MRI prostate 03/21/23-- no suspicious lesions noted in the prostate. Results are a PI-RADS category 2 clinically significant cancer unlikely to be present. He did not have repeat PSA. A renal bladder ultrasound was done which noted indeterminate findings of possible cyst in the seminal vesicles, this was not identified on prior MRI which is a more reliable test for the pelvis. Finasteride sexual side effects. Patient feels like he is urinating well does not want any medication Discussed ultrasound results no hydronephrosis bladder diverticuli. PSA in 6 months 01/23/24--Sam is here for follow up. He states he stopped the proscar as he is on so many other medications and he thought it was prescribed to treat cancer of the prostate. I reviewed the prostate biopsy pathology report and MRI results with him. The were 2 biopsies with atypia, suspicious for adenocarcino, MRI prostate - prostate volume 28 mL no worrisome lesions were visualized. Today Bladder scan PVR is elevated. 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 PSA 09/18/23--7.63 Plan discussed-incomplete bladder emptying. I will check renal and bladder ultrasound, repeat PSA, patient will likely need repeat prostate biopsy some point, repeat MRI will be helpful in the future as well as we follow his PSA numbers. 04/01/23--Sam is a 62-year-old male who presents to the office for discussion of MRI results. The patient was prescribed with finasteride 5 mg. He is taking the medication with benefits. MRI results reviewed--03/21/23-- no suspicious lesions noted in the prostate. Results are a PI-RADS category 2 clinically significant cancer unlikely to be present. 11/29/22--Sam is a 62 year old male patient of Dr. CHERRY. He presents to the office today for a follow up prostate biopsy. In discussion regarding family history patient reports he is adopted and is unsure if he has a family history of prostate cancer. Prostate biopsy results reviewed?11/20/22 for elevated PSA. Findings notable for left, apex and base focally atypical gland suspicious for adenocarcinoma. He denies any urinary issues or concerns. He is followed for elevated PSA. Prostate biopsy ?11/20/22 for elevated PSA. Findings notable for left, apex and base focally atypical gland suspicious for adenocarcinoma. MRI results --03/21/23-- no suspicious lesions noted in the prostate. Results are a PI-RADS category 2 clinically significant, cancer unlikely to be present. [facility] Medical History Type 2 diabetes mellitus Vision changes Frequency of urination Annual physical exam Right otitis media Toe fracture, left Cholelithiasis COPD (chronic obstructive pulmonary disease) Psoriasis Essential tremor Tubular adenoma of colon Fatty liver Tobacco abuse Hypercholesterolemia Vitamin D deficiency Hypertension Folic acid deficiency Surgical History Hx of colonoscopy Hx of excision of dermoid cyst History of colon resection Family History Father No problems noted. Mother No problems noted. Son No problems noted. Daughter No problems noted. Social History Household Members: Spouse Housing: House Are you a primary critical care registered nurse to a significant other at home: No Do you presently have visiting nurse or other home services: No Alcohol intake: current Comment: QD 2-3 drinks Patient Tobacco Use Status: Current everyday Tobacco user Tobacco use type: Cigarette Cigarette Packs Per Day: 1 Cigarettes Per Day: 25 Years Smoked: 50 e-Cigarette/Vaping Use: Never Used Second Hand Smoke Exposure: No service: No Current occupational status: retired Cognitive needs: No Hearing needs: No Vision needs: Yes (glasses) Review of Systems Const All systems reviewed & are unremarkable except as noted in HPI and below Reports no additional complaints Eyes Reports no additional complaints ENT Reports no additional complaints Card Reports no additional complaints Resp Reports no additional complaints GI Reports no additional complaints Reports as per HPI Musc Reports no additional complaints Skin/Breast Reports system reviewed and no additional complaints, except as documented Neuro Reports no additional complaints Psych Reports no additional complaints Endo Reports no additional complaints Tiago/Lymph Reports no additional complaints Aller/Immun Reports no additional complaints Telehealth Telehealth Telehealth Platform: [facility] Location of provider rendering services: practice address Location of patient: address on file Patient Identification confirmed using: Name, : Yes Telehealth method: video Patient verbally consented to treatment: Yes Patient verbally consented to billing insurance company: Yes Patient informed of any privacy concerns related to visit: Yes Assessment & Plan Assessment & Plan (1) Elevated PSA: Code(s): R97.20 - Elevated prostate specific antigen [PSA] Category: Medical (2) Prostatic intraepithelial neoplasia with adjacent atypia: Comment: 10/2022 Code(s): N42.31 - Prostatic intraepithelial neoplasia Category: Medical Plan Will continue to monitor patient repeat PSA in 6 months and repeat MRI in 1 year. Orders: Orders MR Prostate wo/w con 11 Months N42.31 - Prostatic intraepithelial neoplasia, N42.32 - Atypical small acinar proliferation of prostate, R97.20 - Elevated prostate specific antigen [PSA] PSA,Total (Free>4and<10) 6 Months R97.20 - Elevated prostate specific antigen [PSA] Patient Instructions: The patient had an opportunity to ask questions regarding treatment plan. The patient expressed understanding and agreement with the above treatment plan. The patient is aware they should contact our office by phone for worsening of their current condition or the appearance of new symptoms. Compliance is encouraged with any medications and followup testing that is ordered. It is a privilege to be allowed the opportunity to participate in the urologic care of your patient. If you have any questions or concerns regarding treatment for the above conditions please do not hesitate to contact me. The office telephone contact is [phone]. This note is constructed in part using voice recognition software. While every effort has been made to ensure accuracy therapist asst errors may have been included. Yours sincerely, Lesly Pritchard MD Coding Level of Care Code Tele Est Pt Level 4 (44968) Complex EM visit Add On G2211 Diagnoses Elevated PSA R97.20 Prostatic intraepithelial neoplasia with adjacent atypia N42.31
--- OUTSIDE RECORDS SUMMARY | 2024-11-12 12:14 | XMS_ITS | Patient Health Record ---
Author Organization [facility] Address [address] [place] [phone] Care Team Providers Care Inseamer Name Role Phone Carol Morales MD Primary Care Provider Marco Antonio Marroquin [phone] REASON FOR REFERRAL No Information MEDICATIONS Medication SIG (Take, Route, Fr equency, Duration) Notes Start Date End Date Status Fenofibrate Active Folic Acid Active Lisinopril Active Labetalol HCl Active Tylenol PRN Active Excedrin Extra Strength PRN Active IMMUNIZATIONS Vaccine Route Administration Date Status Comme nts Influenza Unknown 09/01/2020 Administered SOCIAL HISTORY Tobacco Use: Social History Observation Description Date Details (start date - stop date) Current Smoker NA - NA Sex Assigned At : Social History Observation Description Sex Assigned At Unknown Tobacco Use/Smoking Question Answer Notes Patient is a current smoker When did you start smoking? 14 years old How often do you smoke cigarettes? every day How many cigarettes a day do you smoke? 11-20 How soon after you wake up do you smoke your fir st cigarette? 6-30 minutes Are you interested in quitting? Not ready to ovidio t Alcohol Screen Question Answer Notes Did you have a drink contain ing alcohol in the past year? Yes How often did you have a dri nk containing alcohol in the past year? 4 or more times a week (4 points) How many drinks did you have on a typical day when you were drinking in the past year? 3 or 4 drinks (1 point) How often did you have 6 or more drinks on one occasion in the past year? Never (0 point) Points 5 Interpretation Positive PROBLEMS Problem Type ICD Code Onset Dates Problem Status W/U Status Risk SNOMED Code Notes Problem Heme + stool (R19.5) Active confirmed Abnormal feces (591944240) Problem Encounter for screening for malignant neoplasm of colon (Z12.11) Active confirmed Screening for malignant neoplasm of colon (171762835) PLAN OF TREATMENT Pending Test Test Name Order Date Pathology 10/19/2020 Future Test Test Name Order Date COLONOSCOPY 09/21/2020 Insurance Providers Payer Name Payer Address Payer Phone Subscriber Number Group Number Insured Name Patient Relationship to Insured Coverage Start Date Coverage End Date [employer] [place] [address] [address] [place] [address] [id number] RAMILA SAUNDERSIN Self - patient is the insured MEDICAL (GENERAL) HISTORY Medical History History ICD Code Hypertension Diverticulitis-s/p surgery as below Hyperlipidemia Denies [place],DM,CVA,Lung disease,renal dise ase Colonoscopy in 2009--negativ e except for sigmoid diverticular disease; there was no inflammatory bowel disease and biopsies were negative for microscopic colitis Surgical History Surgery Date(Month/Year) Sigmoid colon resection for diverticulit is with Dr. Jo 12/2009
--- OUTSIDE RECORDS SUMMARY | 2024-11-12 12:14 | XMS_ITS | Data Portability ---
Author Organization [place] [facility], [facility] Address [address] [address] Care Team Providers Care Occupational Health Nurse Supervisor Name Role Phone DILIP STEF Primary Care Provider [phone] Assessment Encounter Date Assessment Date Assessment LastModified by Organization Details LastModified Time 04/06/2024 04/06/2024 The dilated right external auditory canal cavity was debrided under the binocular microscope of accumulated squamous debris. The medial canal continues to show significantly occlusive exostoses. Left ear canal does not show debris collection but also has significantly occlusive exostoses. Fortunately he's not having problems with water trapping or infection. Recommended the use of rubbing alcohol in the ears should he feel water trapped behind the exostoses. Patient does not have any interest in considering surgical intervention at this time. Recommend follow-up cleaning in six months, as this dilated right ear canal will be prone to squamous debris collection and impaction. Not available 04/06/2024 10:45:55 10/12/2024 10/12/2024 The dilated right external auditory canal cavity was debrided under the binocular microscope of accumulated squamous debris. The medial canal continues to show significantly occlusive exostoses. Left ear canal does not show debris collection but also has significantly occlusive exostoses. Fortunately he's not having problems with water trapping or infection. Recommended the use of rubbing alcohol in the ears should he feel water trapped behind the exostoses. Patient does not have any interest in considering surgical intervention at this time. Recommend follow-up cleaning in 9 months, as this dilated right ear canal will be prone to squamous debris collection and impaction. [email or web address] Not available 10/12/2024 11:31:03 Plan of Treatment Reminders Order Date Submit Date Provider Last Modified By Organization Details Last Modified Time Details Appointments Establish ed 10 2024 11:30A M CY ROMEO MD Not available Not available Not available Lab None recorded. Referral None recorded. Procedures None recorded. Surgeries None recorded. Imaging None recorded. Medication Orders None recorded. Patient TargetsNo targets recorded. Patient InstructionsNo instructions recorded. Reason for Referral None Reported. Results Created Date Observation Date Name Description Value Unit Range Abnormal Flag Note LastModifiedBy Organization Detail LastModifiedTime 05/20/20 24 08/19/2020 imagi ng/di agnos tic resul t No observ ation record ed. [email or web address] Not Available 21:51:35 Result Notes None recorded. Problems Name Problem SNOMED Code Status Onset Date Resolution Date Notes Provider Name and Address Organization Details Recorded Time Bilateral exostosis of external ear canals 66085527337 31835 Active 2022 Exostosis of external canal, bilateral ; Note: Date Diagnosed : 10/09/2022 10:22 AM (H61.813) Not Available [facility] 4 03:12:07 Impacted cerumen in right ear 69097121057 45828 Active 2022 Impacted cerumen, right ear; Note: Date Diagnosed : 10/09/2022 10:26 AM (H61.21) Not Available [facility] 4 03:12:06 Tobacco user 438711877 Active 2022 Tobacco use; Note: Date Diagnosed : 04/09/2023 11:23 AM (Z72.0) Not Available [facility] 4 03:12:07 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 25225148182 94795 Active 2022 Acquired stenosis of external ear canal, unspecifi ed, bilateral ; Note: Date Diagnosed : 10/09/2022 10:22 AM (H61.303) Not Available [facility] 4 03:12:06 Type 2 diabetes mellitus without complicat ion 061569521 Active 2022 Type 2 diabetes mellitus without complicat ions; Note: Date Diagnosed : 04/09/2023 11:23 AM (E11.9) Not Available [facility] 4 03:12:06 Disorder of right external ear 61790461745 60458 Active 2022 Other specified disorders of right external ear; Note: Date Diagnosed : 04/09/2023 11:22 AM (H61.891) Not Available [facility] 4 03:12:07 Cholestea ariel of right external ear 52897002723 86867 Active 2022 Cholestea ariel of right external ear; Note: Date Diagnosed : 10/09/2022 10:22 AM (H60.41) Not Available [facility] 4 03:12:07 Problem Notes None recorded. Procedures Surgical History Date Name Laterality Status Provider Name and Address Organization Details Recorded Time 10/12/19 25 Debridement of Ear canal right completed CY ROMEO MD [address] [place] [address], [phone], [facility] 10/11/2024 19:34:13 04/06/20 24 Debridement of Ear canal right completed CY ROMEO MD [address] [place] [address], [phone], [facility] - [facility] 04/06/2024 10:46:59 excision of colon completed Aliyah Barnett [facility] 04/06/2024 10:34:52 Imaging Results Imaging Date Name Status LastModified by Organiz ation Details LastModified Time 08/19/2020 imaging/diag nostic result completed [email or web address] Information not available 05/20/2024 21:51:35 Procedure Notes None recorded. Medical Equipment None Reported. Allergies No known drug allergies Medications Name Sig Start Date Stop Date Status Note LastModified by Organization Details LastModified Time metformin 500 mg tablet active Medicatio n ID: [id number] Br and Name: metformin Send Method: E-Prescri bed Subs Allowed: subs OK Medica tionGener icName: metformin Not Available Not Available Not Available simvastat in 5 mg tablet active Medicatio n ID: [id number] Br and Name: simvastat in Send Method: E-Prescri bed Subs Allowed: subs [place] Medica tionGener icName: simvastat in Not Available Not Available Not Available folic acid 1 mg tablet TAKE 1 TABLET BY MOUTH EVERY DAY active Not Available Not Available No t Available hydrochlo rothiazid e 25 mg tablet active Not Available Not Available Not Available labetalol 300 mg tablet active Not Available Not Available Not Available labetalol 100 mg tablet 04/06 completed Medicatio n ID: [id number] Br and Name: labetalol Send Method: E-Prescri bed Subs Allowed: subs [place] Medica tionGener icName: labetalol Medicati on ID: [id number] Br and Name: labetalol Send Method: E-Prescri bed Subs Allowed: subs [place] Medica tionGener icName: labetalol Not Available Not Available Not Available lisinopri l 40 mg tablet active Not Available Not Available Not Available clotrimaz ole 1 % topical cream 04/06 completed Not Available Not Available Not Available finasteri de 5 mg tablet active Not Available Not Available Not Available ezetimibe 10 mg tablet active Not Available Not Available Not Available fenofibra te 160 mg tablet active Medicatio n ID: [id number] Br and Name: fenofibra te Send Method: E-Prescri bed Subs Allowed: subs [place] Medica tionGener icName: fenofibra te Not Available Not Available Not Available FreeStyle Lite Strips USE TO TEST ONCE DAILY active Not Available Not Available No t Available Vitals None Recorded Social History None recorded. Functional Status None recorded. Mental Status None recorded. Family History Nothing Reported. 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 Type 2 keira betes mellitus without complication 373312947 E11.9 Health Concerns Section Related Observation LastModified by Organization Detai ls LastModified Time None Recorded Concern Status LastModified by Organization Details LastModified Time None Recorded Advance Directives Directive None Recorded Payers Encounter Date Sequence Insurance Name Policy Number Policy Oquendo Covered Member ID Oquendo Member ID Guarantor Name 04/06/2024 1 [employer] [place] [id number] Michelle Hutton [id number] Sam Hutton 10/12/2024 1 [employer] [id number] Michelle Hutton [id number] Sam Hutton Notes Date Note Type Note Provider Name and Address Organization Details Recorded Time 04/06/2024 text/html 63-year-old diabetic smoker with bilateral severe exostoses as well as a markedly dilated lateral external auditory canal on the right consistent with canal cholesteatoma/ker atosis obturans. Patient comes in for six month follow-up cleaning. No recent pain or discharge. He dabs a Q-tip in the ear when he swims to dry it out after swimming. No recent pain or discharge. CY ROMEO MD [address] [place] [address], [phone], [facility] - [facility] 04/06/2024 10:48:14 10/12/2024 text/html 64 year-old diabetic smoker with bilateral severe exostoses as well as a markedly dilated lateral external auditory canal on the right consistent with canal cholesteatoma/ker atosis obturans. Patient comes in for six month follow-up cleaning. No recent pain or discharge. He dabs a Q-tip in the ear when he swims to dry it out after swimming. No recent pain or discharge. CY ROMEO MD [address] [place] [address], [place], [phone], [facility] - [facility] 10/12/2024 11:31:54
== END 2024-11-12 15:35 | disposition home or self-care (01) ==
LOC: HO.HUSH 11:49
PROVIDERS: PCP Internal Medicine; Visit Provider Urology
DX: R97.20 Elevated prostate specific antigen [PSA] (principal); N42.31 Prostatic intraepithelial neoplasia
CPT/HCPCS: 99214

== ENCOUNTER → 2024-11-12 11:49 | Outpatient (BNVA) | payer OTHER, SELFPAY | PROVIDERS: PCP Internal Medicine; Visit Provider Urology ==

== ENCOUNTER 2024-12-28 10:10 | Outpatient (REF) | payer OTHER, SELFPAY ==
[2024-12-28 10:31] LABS: MANUAL DIFF FLAG NO
[2024-12-28 10:49] LABS: Basophils Absolute Auto 0.1 X10*3/uL (0.0-0.2); Basophils Percent Auto 1.1 % (0-2); Eosinophils Absolute Auto 0.2 X10*3/uL (0.0-0.4); Hematocrit 39.5 % (42.0-52.0); Hemoglobin 13.2 g/dl (14.0-18.0); Imm Gran Abs Auto 0.04 X10*3/uL (0.00-0.03); Imm Gran Pct Auto 0.9 % (0.0-0.4); Immature Retic Fraction 11.8 % (2.3-13.4); Lymphocytes Absolute Auto 1.3 X10*3/uL (1.2-4.9); Lymphocytes Percent Auto 29.1 % (20-40); Mean Corpuscular HGB Conc 33.4 g/dl (31.0-36.0); Mean Corpuscular Hemoglobin 31.9 pg (27.0-33.0); Mean Corpuscular Volume 95.4 fL (80.0-98.0); Mean Platelet Volume 9.3 fL (9.4-12.4); Monocytes Absolute Auto 0.3 X10*3/uL (0.1-1.2); Monocytes Percent Auto 6.1 % (2-11); Neutrophils Absolute Auto 2.6 x10*3/uL (2.0-8.3); Neutrophils Percent Auto 57.8 % (45-73); Platelet Count 142 X10*3/uL (160-400); Red Blood Count 4.14 X10*6/uL (4.60-5.80); Red Cell Distribution Width 13.2 % (11.0-16.0); Retic HGB Equivalent 37.8 pg (30.0-35.0); Reticulocyte Percent 1.9 % (0.5-1.8); Reticulocytes Absolute 0.079 X10*6/uL (0.026-0.095); White Blood Count 4.6 X10*3/uL (4.8-10.8)
--- OUTSIDE RECORDS SUMMARY | 2024-12-28 11:20 | XMS_ITS | Patient Health Record ---
Author Organization [facility] Address [address] [place] [phone] Care Team Providers Care Air Conditioning Equipment Mechanic Name Role Phone Carol Morales MD Primary Care Provider Marco Antonio Marroquin [phone] Reason For Referral No Information Medications Medication SIG (Take, Route, Fr equency, Duration) Notes Start Date End Date Status Fenofibrate Active Folic Acid Active Lisinopril Active Labetalol HCl Active Tylenol PRN Active Excedrin Extra Strength PRN Active Immunizations Vaccine Route Administration Date Status Comme nts Influenza Unknown 09/01/2020 Administered Social History Tobacco Use: Social History Observation Description Date Details (start date - stop date) Current Smoker NA - NA Tobacco Use/Smoking Question Answer Notes Patient is [...] Never (0 point) Points 5 Interpretation Positive Section Notes: Smoker 1 ppd; 2 drinks per d ay Problems Problem Type SNOMED Code ICD Code Onset Dates Problem Status W/U Status Risk Notes Problem Screening for malignant neoplasm of colon (086988192) Encounter for screening for malignant neoplasm of colon (Z12.11) Active confirmed Problem Abnormal feces (152781186) Heme + stool (R19.5) Active confirmed Plan Of Treatment Pending Test Test Name Order Date Pathology 10/19/2020 Future Test Test Name Order Date COLONOSCOPY 09/21/2020 Insurance Providers Payer Name Payer Address Payer Phone Subscriber Number Group Number Insured Name Patient Relationship to Insured Coverage Start Date Coverage End Date [employer] [place] [address] [address] [place] [address] [id number] ZAC SAUNDERS Self - patient is the insured Medical (General) History Medical History History ICD Code Hypertension Diverticulitis-s/p surgery as below Hyperlipidemia Denies SD,DM,CVA,Lung disease,renal dise ase Colonoscopy in 2009--negativ e except for sigmoid diverticular disease; there was no inflammatory bowel disease and biopsies were negative for microscopic colitis Surgical History Surgery Date(Month/Year) Sigmoid colon resection for diverticulit is with Dr. Jo 12/2009
[2024-12-28 11:37] LABS: Alanine Aminotransferase 29 U/L (0-40); Albumin Level 3.8 g/dL (3.5-5.0); Alkaline Phosphatase 25 U/L (39-117); Anion Gap 13 (12-20); Aspartate Amino Transferase 41 U/L (5-37); Bilirubin Total 0.4 mg/dL (0.0-1.0); Blood Urea Nitrogen 21 mg/dL (9-16); Carbon Dioxide 24 mmol/L (22-29); Chloride 104 mmol/L (96-108); Cholesterol 177 mg/dL (<200); Estimated Glomerular Filt Rate 50; Ferritin 455 ng/mL (20-250); Glucose Random 145 mg/dL (60-115); HDL Cholesterol 26 mg/dL (>40); Iron 114 mcg/dL (45-160); LDL Cholesterol Calculated 90 mg/dL (<100); Percent Iron Saturation 32 % (15-50); Potassium 3.9 mmol/L (3.3-5.1); Sodium 137 mmol/L (135-145); Total Iron Binding Capacity 354 mcg/dL (228-428); Total Protein 6.7 g/dL (6.5-8.0); Triglycerides 308 mg/dL (<150); Unsaturated Iron Binding 240 ug/dL
== END 2024-12-28 10:11 | disposition home or self-care (01) ==
LOC: HO.LAB 10:10
PROVIDERS: PCP Internal Medicine; Visit Provider Internal Medicine
DX: E11.65 Type 2 diabetes mellitus with hyperglycemia (principal); N28.9 Disorder of kidney and ureter, unspecified; E78.00 Pure hypercholesterolemia, unspecified
CPT/HCPCS: 36415; 80053; 80061; 82728; 83540; 85025; 85045

== ENCOUNTER 2024-12-31 11:39 | Outpatient (AMB) | payer OTHER, SELFPAY ==
[2024-12-31 11:54] VITALS: BP 128/78; PULSE 73; O2SAT 97; BMI 31.1
--- NOTE | 2024-12-31 11:54 | MHC.PC.OV ---
Vital Signs 12/31/24 11:54 Height 5 ft 10 in Weight 217 lb BMI 31.1 BP 128/78 Blood Pressure Location Lt brachial Position Sitting Pulse 73 Pulse Source Pulse Oximeter Pulse Oximetry (%) 97 Oxygen Delivery Method Room Air Intake Visit Reasons: Renal insufficiency, diabetes mellitus Allergies finasteride Adverse Reaction (Intermediate, Verified 12/31/24 11:54) premature ejaculation simvastatin Adverse Reaction (Intermediate, Verified 12/31/24 11:54) Diarrhea Medication List - Last Reconciled 12/31/24 by Carol Morales MD blood sugar diagnostic (FreeStyle Lite Strips) USE TO TEST ONCE DAILY blood-glucose meter (FreeStyle Lite Meter kit) As directed clobetasol 0.05% 1 appl topical BID clotrimazole 1% 1 appl topical BID 4 weeks ezetimibe (Zetia) 10 mg PO DAILY fenofibrate 160 mg PO DAILY folic acid 1 mg PO DAILY FreeStyle Lancets (lancets) Test once Daily NS hydrochlorothiazide 25 mg PO DAILY labetalol 300 mg PO BID lisinopril 40 mg PO DAILY 90 days Tobacco use date assessed: 12/31/24 Fall risk assessment: No Falls in past year Last assessed Fall Risk: 12/31/24 Dental Screening Dental Screen Date: 12/31/24 Did you have a dental visit in the last 12 months?: Yes Did you have a dental problem in the last 6 months where you did not have access to dental care?: No Was dental information given to patient?: Patient has dentist [facility] Medical History Type 2 diabetes mellitus Vision changes Frequency of urination Annual physical exam Right otitis media Toe fracture, left Cholelithiasis COPD (chronic obstructive pulmonary disease) Psoriasis Essential tremor Tubular adenoma of colon Fatty liver Tobacco abuse Hypercholesterolemia Vitamin D deficiency Hypertension Folic acid deficiency Surgical History Hx of colonoscopy Hx of excision of dermoid cyst History of colon resection Family History Father No problems noted. Mother No problems noted. Son No problems noted. Daughter No problems noted. Social History Household Members: Spouse Housing: House Are you a primary child caregiver to a significant other at home: No Do you presently have visiting nurse or other home services: No Alcohol intake: current Comment: QD 2-3 drinks Patient Tobacco Use Status: Current everyday Tobacco user Tobacco use type: Cigarette Cigarette Packs Per Day: 1 Cigarettes Per Day: 25 Years Smoked: 50 e-Cigarette/Vaping Use: Never Used Second Hand Smoke Exposure: No service: No Current occupational status: retired Cognitive needs: No Hearing needs: No Vision needs: Yes (glasses) Questionnaire PHQ-9 Over the last 2 weeks, how often have you been bothered by any of the following problems? 1. Little interest or pleasure in doing things: not at all 2. Feeling down, depressed, or hopeless: not at all 3. Trouble falling or staying asleep, or sleeping too much: not at all 4. Feeling tired or having little energy: not at all 5. Poor appetite or overeating: not at all 6. Feeling bad about yourself - or that you are a failure or have let yourself or your family down: not at all 7. Trouble concentrating on things, such as reading the newspaper or watching television: not at all 8. Moving or speaking so slowly that other people could have noticed. Or the opposite - being so fidgety or restless that you have been moving around a lot more than usual: not at all 9. Thoughts that you would be better off or of hurting yourself in some way: not at all Total score: 0 Depression Screening Interpretation: Negative Depression Screening Done: Yes Source: Developed by Drs. Marco Antonio Christensen, Farhana Vaughn, Alfredito Martinez and colleagues, with an educational allan from [employer]. Thrive Questionnaire Date Thrive assessed: 12/31/24 I am a: Patient What is your living situation today?: I have a steady place to live Within the past 12 months, did the food you bought not last and you didn't have the money to get more?: Never true Within the past 12 months, did you worry whether your food would run out before you got money to buy more?: Never true Do you have trouble paying for medicines?: No Do you have trouble getting transportation to medical appointments?: No Do you have trouble paying your heating and electricity bill?: No Do you have trouble taking care of your child, family member or friend?: No Do you have trouble with day-to-day activities such as bathing, preparing meals, shopping, managing finances, etc.?: No Are you currently unemployed and looking for a job?: No Are you interested in more education?: No Currently or been in a relationship where the following occur: No concerns reported THRIVE Score: 0 AUDIT C Alcohol Use Questionnaire (AUDIT-C) 1. How often do you have a drink containing alcohol?: Monthly or less 2. How many drinks containing alcohol do you have on a typical day when you are drinking?: 1 or 2 Total Score: 1 DAVIAN-7 AMB Questionnaire DAVIAN-7 Date DAVIAN - 7 assessed: 12/31/24 Feeling nervous, anxious, or on edge: 0 = Not at all Not being able to stop or control worryin = Not at all Worrying too much about different things: 0 = Not at all Trouble relaxin = Not at all Being so restless that it is hard to sit still: 0 = Not at all Becoming easily annoyed or irritable: 0 = Not at all Feeling afraid as if something awful might happen: 0 = Not at all Total DAVIAN-7 score (0-4 normal; 5-9 mild; 10-14 moderate; 15-21 severe): 0 Source: Developed by Drs. Marco Antonio Christensen, Farhana Vaughn, Alfredito Martinez and colleagues, with an educational allan from [employer]. Physical exam (Primary Care) Vital Signs: Last Vital Signs Pulse 73 12/31/24 11:54 BP 128/78 12/31/24 11:54 Pulse Ox 97 12/31/24 11:54 Oxygen Delivery Method Room Air 12/31/24 11:54 BMI result Body Mass Index 31.1 Tobacco/Smoking Status: Tobacco use Status Tobacco use date assessed 12/31/24 12/31/24 11:56 Patient Tobacco Use Status Current everyday Tobacco 12/31/24 11:56 Tobacco use type Cigarette 12/31/24 11:56 e-Cigarette/Vaping Use Never Used 12/31/24 11:56 PHQ-9: PHQ-9 Score PHQ-9: Total score 0 12/31/24 12:10 Depression Screening Interpretation: Negative Thrive Assessment: Date of Thrive Assessment Date Thrive assessed 12/31/24 12/31/24 11:56 Currently or been in a relationship where the following occur: No concerns reported Const General: alert; No acute distress Eyes Conjunctivae: conjunctivae normal Resp Auscultation: clear to auscultation bilaterally Cardio Rate: regular rate Rhythm: regular rhythm GI Inspection: Yes normal to inspection Extrem General: Yes normal to inspection and No edema Coding Level of Care Code Est Pt Level 4 (00394) Complex EM visit Add On G2211 Diagnoses Type 2 diabetes mellitus with hyperglycemia, without long-term current use of insulin E11.65 Diabetes mellitus ferry terminal supervisor insulin use: without ferry terminal supervisor use Tobacco abuse Z72.0 Pulmonary emphysema, unspecified emphysema type J43.9 COPD type: emphysema Emphysema type: unspecified Essential hypertension I10 Hypertension type: essential hypertension Hypercholesterolemia E78.00 Prostatic intraepithelial neoplasia with adjacent atypia N42.31 Bladder stone N21.0 Assessment & Plan Assessment & Plan (1) Type 2 diabetes mellitus with hyperglycemia: Comment: No rx, Dr. Haynes Code(s): E11.65 - Type 2 diabetes mellitus with hyperglycemia Category: Medical Qualifiers: Diabetes mellitus ferry terminal supervisor insulin use: without senior living use Qualified Code(s): E11.65 - Type 2 diabetes mellitus with hyperglycemia Plan: Decrease the amount of carbohydrate intake, pasta, bread, rice and potatoes are all sugar and that is aside from all the sweet stuff, remember that fruits are good but they are Sweet also. Hemoglobin A1c goal of less than 7.0 diet controlled (2) Tobacco abuse: Code(s): Z72.0 - Tobacco use Category: Medical Plan: Patient is strongly advised to stop smoking (3) COPD (chronic obstructive pulmonary disease): Code(s): J44.9 - Chronic obstructive pulmonary disease, unspecified Category: Medical Qualifiers: COPD type: emphysema Emphysema type: unspecified Qualified Code(s): J43.9 - Emphysema, unspecified Plan: Patient is advised to stop smoking! (4) Hypertension: Code(s): I10 - Essential (primary) hypertension Category: Medical Qualifiers: Hypertension type: essential hypertension Qualified Code(s): I10 - Essential (primary) hypertension Plan: Continue with blood pressure medication. Decrease salt intake and exercise on labetalol 300 mg twice a day lisinopril 40 mg once a day hydrochlorothiazide 25 mg once a day (5) Hypercholesterolemia: Comment: Declined statin due to problem with simvastatin Code(s): E78.00 - Pure hypercholesterolemia, unspecified Category: Medical Plan: Avoid fried foods, chicken skin, eggs, butter margarine, pastries and meat. Be it pork or beef they have a lot of cholesterol LDL goal of less than 100 patient is on Zetia 10 mg once a day fenofibrate 160 mg once a day (6) Prostatic intraepithelial neoplasia with adjacent atypia: Comment: 10/2022 Code(s): N42.31 - Prostatic intraepithelial neoplasia Category: Medical Plan: Continue to follow-up with urology with MRI to be done late this year (7) Bladder stone: Code(s): N21.0 - Calculus in bladder Category: Medical Plan: Keep well hydrated Plan History of Present Illness The patient is a 64-year-old male presenting for a follow-up visit related to his chronic medical conditions. These include obesity, well-controlled Type 2 diabetes mellitus, chronic obstructive pulmonary disease due to smoking, and hypertension. The patient has a history of prostate cancer, initially diagnosed in October 2022, and subsequent follow-ups with MRI suggested chronic prostatitis but no suspicious prostate lesions. Renal function has remained stable, but mild anemia and alterations in blood cell counts, such as leukopenia and thrombocytopenia, have been observed during routine blood work. Liver function tests have been recorded as elevated. The patient also reports chronic hypertriglyceridemia, controlled LDL cholesterol levels, and regular monitoring of his prostate status with planned MRIs. Management strategies involve both pharmacological and lifestyle modifications, particularly concerning dietary habits affecting weight management, diabetes control, and cardiovascular risk factors. Continued monitoring and follow-up are crucial across multiple specialties to address the multifaceted health concerns of this patient. Health Maintenance - Discussed dietary changes focusing on reducing red meat to manage cholesterol and triglyceride levels. - Employed a plan for maintaining Hemoglobin A1c below 7.0 with diet and controlled hydration. - Reviewed vaccines: flu shot administered annually, pneumonia shot given in 2023, shingles vaccination is up-to-date. - Ear, nose, and throat health monitored by cut off saw tender metal bi-annually. - Periodic prostate evaluations with MRIs scheduled semi-annually. - Cholesterol management with Zetia and fenofibrate targeting LDL below 100 and triglycerides below 150. - Advised smoking cessation. Social History - Patient is a current smoker. - Red meat is regularly consumed; patient advised to moderate intake due to hyperlipidemia. - Minimal consumption of sweets or desserts; acknowledges preference for hamburgers over chicken as an animal protein source. - No exercise regularly but selective physical activities include fitness-stimulating tasks like occasional stair exercises. - Patient denies any significant change in bowel movements or urinary frequency. Review of Systems - General: Denies significant changes in weight. - Respiratory: Denies shortness of breath in general activities. - Gastrointestinal: Denies changes in bowel movements. - Genitourinary: Wakes once per night for urinary purposes. - Hematologic: Reports stable blood counts; mild anemia. - Musculoskeletal: Reports having occlusive exostosis in the ears. Physical Exam Results - Labs: Mild anemia (Hemoglobin 13.2), leukopenia, thrombocytopenia, elevated liver function tests, triglycerides at 308 mg/dL, LDL below 100. - Renal function: Stable, creatinine 1.41. Plan The treatment plan emphasizes maintaining strict goals for diabetes and comprehensive hypertension control. Effective management of his lipid levels, specifically elevated triglycerides, includes adhering to prescribed pharmacotherapy and dietary modifications. Reinforcement of smoking cessation is crucial to support COPD management and reduce long-term cardiovascular and cancer risks. The patient is encouraged to adhere to urology follow-up for prostate cancer management with surveillance MRIs. Regular blood work and kidney function tests are to be continued for monitoring chronic health issues. Maintaining vaccination schedules, including flu and pneumonia vaccines, is vital for preventive care, while biannual ENT evaluations are necessary for managing chronic ear conditions. Patient adherence to my smoking cessation advice and dietary adjustments will significantly contribute to improving his overall health status. Patient was informed and verbally consented to the use of an ambient scribe for clinic note documentation during this visit. Discussion Notes During this visit, I discussed the comprehensive management of the patient?s chronic health conditions, which include diabetes, COPD, cholesterol, and more. We reviewed the necessity of maintaining control over his metabolic conditions, specifically managing Hemoglobin A1c and triglyceride levels and ensuring his blood pressure medications are effectively preventing hypertensive complications. We went through the significance of smoking cessation for his respiratory and cardiovascular health, emphasizing long-term risks associated with continued smoking. I reinforced the scheduled plan for urological evaluations for prostate cancer and necessary MRIs, given his chronic prostatitis history. We discussed blood work findings of anemia, leukopenia, and elevated liver function tests, ensuring routine monitoring. Preventive care updates include vaccines, dietary modifications advocating reduced red meat intake, and understanding the implications for body weight and cardiovascular risk reduction. I addressed the importance of adherence to his medication regimen and the scheduled future follow-up to monitor his health progress and medication effectiveness. Patient Instructions - Continue following a diet low in red meats and saturated fats to manage cholesterol. - Remain hydrated and maintain a balanced diet to manage blood sugar levels. - Adhere to prescribed medications: Zetia, fenofibrate, antihypertensives. - Schedule urology and ENT follow-up appointments as planned. - Avoid non-steroidal anti-inflammatory drugs such as ibuprofen to protect renal function. - Continue current vaccine schedule and ensure annual flu vaccination. - Actively work towards smoking cessation. - Schedule next lab tests and follow-up blood work as guided. - Maintain regular physical activity and balanced nutrition. - Monitor for any notable changes in health and seek medical attention if needed. Orders: Orders AMB Hemoglobin A1c Today Z13.9 - Encounter for screening, unspecified Complete Blood Count Auto Diff 6 Months E11. - Type 2 diabetes mellitus with hyperglycemia Comprehensive Met. Panel 6 Months E11. - Type 2 diabetes mellitus with hyperglycemia Thyroid Stimulating Hormone 6 Months E11. - Type 2 diabetes mellitus with hyperglycemia Prostate Specific Antigen Scr 6 Months E11.65 - Type 2 diabetes mellitus with hyperglycemia Creatinine Urine 6 Months E11. - Type 2 diabetes mellitus with hyperglycemia Microalbumin, Random (w Creat) 6 Months E11. - Type 2 diabetes mellitus with hyperglycemia Vitamin B12 and Folate 6 Months E11.65 - Type 2 diabetes mellitus with hyperglycemia Free T4 (Free Thyroxine) 6 Months E11.65 - Type 2 diabetes mellitus with hyperglycemia Hemoglobin A1c 6 Months E11.65 - Type 2 diabetes mellitus with hyperglycemia
--- OUTSIDE RECORDS SUMMARY | 2024-12-31 12:56 | XMS_ITS | Patient Health Record ---
Author Organization [facility] Address [address] [place] [id number] Care Team Providers Care Cabin Crew Name Role Phone Carol Morales MD Primary Care Provider Marco Antonio Marroquin [phone] Reason For Referral No Information Medications Medication [...] Problem Screening for malignant neoplasm of colon ([id number]) Encounter for screening for malignant neoplasm of colon (Z12.11) Active confirmed Problem Abnormal feces ([id number]) Heme + stool (R19.5) Active confirmed Plan Of Treatment Pending Test Test Name Order Date Pathology 10/19/2020 Future Test Test Name Order Date COLONOSCOPY 09/21/2020 Insurance Providers Payer Name Payer Address Payer Phone Subscriber Number Group Number Insured Name Patient Relationship to Insured Coverage Start Date Coverage End Date [employer] [place] [address] [address] [place] [address] [id number] [id number] Self - patient is the insured Medical (General) History Medical History History ICD Code Hypertension Diverticulitis-s/p surgery as below Hyperlipidemia Denies [place],DM,CVA,Lung disease,renal dise ase Colonoscopy in 2009--negativ e except for sigmoid diverticular disease; there was no inflammatory bowel disease and biopsies were negative for microscopic colitis Surgical History Surgery Date(Month/Year) Sigmoid colon resection for diverticulit is with Dr. Jo 12/2009
--- OUTSIDE RECORDS SUMMARY | 2024-12-31 12:56 | XMS_ITS | Data Portability ---
Author Organization [place] [facility], Allergy Address [address] [address] Care Team Providers Care Outside Parts Salesman Name Role Phone DILIP STEF Primary Care Provider [phone] Assessment Encounter Date Assessment Date Assessment LastModified [...] prone to squamous debris collection and impaction. [email or web address] Not available 04/06/2024 10:45:55 10/12/2024 10/12/2024 The [...] prone to squamous debris collection and impaction. [email or web address] Not available 10/12/2024 11:31:03 Plan of Treatment [...] Time Bilateral exostosis of external ear canals 56516428501 56707 Active 2022 Exostosis of external canal, bilateral ; Note: Date Diagnosed : 10/09/2022 10:22 AM (H61.813) Not Available [facility] 4 03:12:07 Impacted cerumen in right ear 81910171966 33653 Active 2022 Impacted cerumen, right ear; Note: Date Diagnosed : 10/09/2022 10:26 AM (H61.21) Not Available [facility] 4 03:12:06 Tobacco user 752225363 Active 2022 Tobacco use; Note: Date Diagnosed : 04/09/2023 11:23 AM (Z72.0) Not Available [facility] 4 03:12:07 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 72061814206 43907 Active 2022 Acquired stenosis of external ear canal, unspecifi ed, bilateral ; Note: Date Diagnosed : 10/09/2022 10:22 AM (H61.303) Not Available [facility] 4 03:12:06 Type 2 diabetes mellitus without complicat ion 506862686 Active 2022 Type 2 diabetes mellitus without complicat ions; Note: Date Diagnosed : 04/09/2023 11:23 AM (E11.9) Not Available [facility] 4 03:12:06 Disorder of right external ear 68787201958 79782 Active 2022 Other specified disorders of right external ear; Note: Date Diagnosed : 04/09/2023 11:22 AM (H61.891) Not Available [facility] 4 03:12:07 Cholestea ariel of right external ear 90865017553 75708 Active 2022 Cholestea ariel of right external ear; Note: Date Diagnosed : 10/09/2022 10:22 AM (H60.41) Not Available [facility] 4 03:12:07 Problem Notes None recorded. Procedures Surgical History Date Name Laterality Status Provider Name and Address Organization Details Recorded Time 10/12/19 25 Debridement of Ear canal right completed CY ROMEO MD [address] [place] [address], [phone], [facility] 10/11/2024 19:34:13 04/06/20 24 Debridement of Ear canal right completed CY ROMEO MD [address] [place] [address], [phone], [facility] - [facility] 04/06/2024 10:46:59 excision of colon completed Aliyah Barnett [facility] 04/06/2024 10:34:52 Imaging Results Imaging Date Name Status LastModified by Organiz ation Details LastModified Time 08/19/2020 imaging/diag nostic result completed [email or web address] Information not available 05/20/2024 21:51:35 Procedure Notes None recorded. Medical Equipment None Reported. Allergies No known drug allergies Medications Name Sig Start Date Stop Date Status Note LastModified by Organization Details LastModified Time metformin 500 mg tablet active Medicatio n ID: [id number] Br and Name: metformin Send Method: E-Prescri bed Subs Allowed: subs OK Medica tionGener icName: metformin Not Available Not Available Not Available simvastat in 5 mg tablet active Medicatio n ID: [id number] Br and Name: simvastat in Send Method: [...] mg tablet 04/06 completed Medicatio n ID: [id number] Br and Name: labetalol Send Method: E-Prescri bed Subs Allowed: subs OK Medica tionGener icName: labetalol Medicati on ID: [id number] Br and Name: labetalol Send Method: E-Prescri [...] 160 mg tablet active Medicatio n ID: [id number] Br and Name: fenofibra te Send Method: E-Prescri bed Subs Allowed: subs OK Medica tionGener icName: fenofibra te Not Available Not Available Not Available FreeStyle Lite Strips USE TO TEST ONCE DAILY active Not Available Not Available No t Available Vitals None Recorded Social History None recorded. Functional Status None recorded. Mental Status None recorded. Family History Nothing Reported. 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 Type 2 keira betes mellitus without complication 132253742 E11.9 Health Concerns Section Related Observation LastModified by Organization Detai ls LastModified Time None Recorded Concern Status LastModified by Organization Details LastModified Time None Recorded Advance Directives Directive None Recorded Payers Encounter Date Sequence Insurance Name Policy Number Policy Oquendo Covered Member ID Oquendo Member ID Guarantor Name 04/06/2024 1 [employer] [place] [id number] Michelle Hutton [id number] Sam Hutton 10/12/2024 1 [employer] [place] [id number] Michelle Hutton [id number] Sam Hutton Notes Date Note Type [...] recent pain or discharge. CY ROMEO MD [address] [place] [address], [phone], [facility] - [facility] 04/06/2024 10:48:14 10/12/2024 text/html 64 year-old [...] recent pain or discharge. CY ROMEO MD [address] [place] [address], [place], [address], [facility] - [facility] 10/12/2024 11:31:54
== END 2024-12-31 12:21 | disposition home or self-care (01) ==
LOC: HO.HMCH 11:39
PROVIDERS: PCP Internal Medicine; Visit Provider Internal Medicine
DX: E11.65 Type 2 diabetes mellitus with hyperglycemia (principal); Z72.0 Tobacco use; J43.9 Emphysema, unspecified; I10 Essential (primary) hypertension; E78.00 Pure hypercholesterolemia, unspecified; N42.31 Prostatic intraepithelial neoplasia; N21.0 Calculus in bladder

== ENCOUNTER 2025-09-16 10:56 | Outpatient (REF) | payer OTHER, SELFPAY ==
[2025-09-16 11:12] LABS: MANUAL DIFF FLAG NO
[2025-09-16 11:25] LABS: Hematocrit 38.8 % (42.0-52.0); Hemoglobin 13.5 g/dl (14.0-18.0); Imm Gran Abs Auto 0.08 X10*3/uL (0.00-0.03); Imm Gran Pct Auto 1.3 % (0.0-0.4); Lymphocytes Absolute Auto 1.5 X10*3/uL (1.2-4.9); Mean Corpuscular HGB Conc 34.8 g/dl (31.0-36.0); Mean Corpuscular Hemoglobin 33.8 pg (27.0-33.0); Mean Corpuscular Volume 97.2 fL (80.0-98.0); NRBC Abs Auto 0.000 X10*3/uL (0.0-0.012); NRBC Pct Auto 0.0 /100WBC (0.0-0.2); Platelet Count 146 X10*3/uL (160-400); Red Blood Count 3.99 X10*6/uL (4.60-5.80); White Blood Count 6.3 X10*3/uL (4.8-10.8)
[2025-09-16 12:40] LABS: Folate > 20.0 ng/mL (> or = 4.0); Vitamin B12 340 pg/mL (200-900)
[2025-09-16 13:36] LABS: Microalbum/Creatinine Ratio Ur 11.1 ug/mg cr (<30)
[2025-09-16 13:55] LABS: Alanine Aminotransferase 25 U/L (0-40); Albumin Level 4.2 g/dL (3.5-5.0); Alkaline Phosphatase 29 U/L (39-117); Anion Gap 13 (12-20); Aspartate Amino Transferase 33 U/L (5-37); Blood Urea Nitrogen 30 mg/dL (9-16); Calcium 9.5 mg/dL (8.4-10.2); Carbon Dioxide 25 mmol/L (22-29); Chloride 105 mmol/L (96-108); Estimated Glomerular Filt Rate 34; Potassium 3.9 mmol/L (3.3-5.1); Sodium 139 mmol/L (135-145); Total Protein 7.1 g/dL (6.5-8.0)
--- OUTSIDE RECORDS SUMMARY | 2025-09-16 14:11 | XMS_ITS | Patient Health Record ---
Author Organization [facility] Address [address] [place] [address] Care Team Providers Care Project Superintendent Name Role Phone Carol Morales MD Primary Care Provider Marco Antonio Marroquin [phone] Reason For Referral No Information Medications Medication [...] stop date) Current Smoker NA - NA Social History Drugs/Alcohol: Social Info Question Answer Notes Alcohol Screen Did you have a drink containing alcohol in the past year? Yes How often did you have a drink containing alcohol in the past year? 4 or more times a week (4 points) How many drinks did you have on a typical day when you were drinking in the past year? 3 or 4 drinks (1 point) How often did you have 6 or more drinks on one occasion in the past year? Never (0 point) Points 5 Interpretation Positive Tobacco Use: Social Info Question Answer Notes Tobacco Use/Smoking Patient is a current smoker When did you start smoking? 14 years old How often do you smoke cigarettes? every day How many cigarettes a day do you smoke? 11-20 How soon after you wake up do you smoke your first cigarette? 6-30 minutes Are you interested in quitting? 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[employer] [employer] Occupation: Retired courier delivery driver in 06/2020 Section Notes: Smoker 1 ppd; 2 drinks per d ay Problems Problem Type SNOMED Code ICD Code Onset Dates Problem Status W/U Status Risk Notes Problem Screening for malignant neoplasm of colon (911721257) Encounter for screening for malignant neoplasm of colon (Z12.11) Active confirmed Problem Abnormal feces (727833568) Heme + stool (R19.5) Active confirmed Plan Of Treatment Pending Test Test Name Order Date Pathology 10/19/2020 Future Test Test Name Order Date COLONOSCOPY 09/21/2020 Insurance Providers Payer Name Payer Address Payer Phone Subscriber Number Group Number Insured Name Patient Relationship to Insured Coverage Start Date Coverage End Date [employer] [address] [address] [place] [address] [id number] RAMILA SAUNDERSIN Self - patient is the insured Medical (General) History Medical History History ICD Code Hypertension Diverticulitis-s/p surgery as below Hyperlipidemia Denies [place],DM,CVA,Lung disease,renal dise ase Colonoscopy in 2009--negativ e except for sigmoid diverticular disease; there was no inflammatory bowel disease and biopsies were negative for microscopic colitis Surgical History Surgery Date(Month/Year) Sigmoid colon resection for diverticulit is with Dr. Jo 12/2009
--- OUTSIDE RECORDS SUMMARY | 2025-09-16 14:11 | XMS_ITS | Data Portability ---
Author Organization [place] [facility], Allergy Address [address] [address] Care Team Providers Care Chemical Etch Operator Name Role Phone DILIP STEF Primary Care Provider Assessment Encounter Date Assessment Date Assessment LastModified [...] prone to squamous debris collection and impaction. [email or web address] Not available 04/06/2024 10:45:55 10/12/2024 10/12/2024 The [...] prone to squamous debris collection and impaction. [email or web address] Not available 10/12/2024 11:31:03 Plan of Treatment Reminders Order Date Submit Date Provider Last Modified By Organization Details Last Modified Time Details Appointments None record ed. Lab None record ed. Referral None record ed. Procedures None record ed. Surgeries None record ed. Imaging None record ed. Medication Orders None record ed. Patient TargetsNo targets recorded. 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 20903115903 84744 Active 2022 Acquired stenosis of external ear canal, unspecifi ed, bilateral ; Note: Date Diagnosed : 10/09/2022 10:22 AM (H61.303) Not Available Counts include 234 beds at the [facility] 4 03:12:06 Cholestea ariel of right external ear 34179002049 68839 Active 2022 Cholestea ariel of right external ear; Note: Date Diagnosed : 10/09/2022 10:22 AM (H60.41) Not Available Counts include 234 beds at the [facility] 4 03:12:07 Tobacco user 356717285 Active 2022 Tobacco use; Note: Date Diagnosed : 04/09/2023 11:23 AM (Z72.0) Not Available Counts include 234 beds at the [facility] 4 03:12:07 Type 2 diabetes mellitus without complicat ion 843425588 Active 2022 Type 2 diabetes mellitus without complicat ions; Note: Date Diagnosed : 04/09/2023 11:23 AM (E11.9) Not Available Counts include 234 beds at the [facility] 4 03:12:06 Disorder of right external ear 05996159937 68651 Active 2022 Other specified disorders of right external ear; Note: Date Diagnosed : 04/09/2023 11:22 AM (H61.891) Not Available Counts include 234 beds at the [facility] 4 03:12:07 Problem Notes None recorded. Procedures Surgical History Date Name Laterality Status Provider Name and Address Organization Details Recorded Time 10/12/19 25 Debridement of Ear canal right completed CY ROMEO MD [address] [place] [address], [phone], [facility] 10/11/2024 19:34:13 04/06/20 24 Debridement of Ear canal right completed CY ROMEO MD [address] [place] [address], [phone], [facility] 04/06/2024 10:46:59 excision of colon completed Aliyah Barnett [facility] 04/06/2024 10:34:52 Imaging Results None recorded. Procedure Notes None recorded. Medical Equipment None Reported. Allergies No known drug allergies Medications Name Sig Start Date Stop Date Status Note LastModified by Organization Details LastModified Time metformin 500 mg tablet active Medicatio n ID: [id number] Br and Name: metformin Send Method: E-Prescri bed Subs Allowed: subs OK Medica tionGener icName: metformin Not Available Not Available Not Available simvastat in 5 mg tablet active Medicatio n ID: [id number] Br and Name: simvastat in Send Method: [...] mg tablet 04/06 completed Medicatio n ID: [id number] Br and Name: labetalol Send Method: E-Prescri bed Subs Allowed: subs [place] Medica tionGener icName: labetalol Medicati on ID: [id number] Br and Name: labetalol Send Method: E-Prescri [...] 160 mg tablet active Medicatio n ID: [id number] Br and Name: fenofibra te Send Method: [...] Diagnosis SNOMED-CT Code Diagnosis ICD10 Code Diagnosis IMO Codes Diagnosis Note [id number] CY ROMEO MD [facility] [address] [address] 04/06/2024 10:23:20 04/06/2024 10:47:57 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 Type 2 keira betes mellitus without complication 740206134 E11.9 Health Concerns Section Related Observation LastModified by Organization Detai ls LastModified Time None Recorded Concern Status LastModified by Organization Details LastModified Time None Recorded Advance Directives Directive None Recorded Payers Insurance Date Sequence Insurance Name Policy Number Policy Oquendo Covered Member ID Oquendo Member ID Guarantor Name 04/23/2025 1 [employer]) [id number] Michelle Hutton [id number] Sam Hutton Notes Date Note Type Note [...] recent pain or discharge. CY ROMEO MD [address] [place] [address], [phone], [facility] - [facility] 04/06/2024 10:48:14 10/12/2024 text/html 64 year-old diabetic [...] recent pain or discharge. CY ROMEO MD [address] [place] [address], [place], [address], [place] - [facility] 10/12/2024 11:31:54
[2025-09-16 14:19] LABS: Free T4 (Free Thyroxine) 0.93 ng/dL (0.71-1.85); Thyroid Stimulating Hormone 1.81 uIU/mL (0.32-4.0)
== END 2025-09-16 10:57 | disposition home or self-care (01) ==
LOC: HO.LAB 10:56
PROVIDERS: PCP Internal Medicine; Visit Provider Internal Medicine
DX: Z12.5 Encounter for screening for malignant neoplasm of prostate (principal); E11.65 Type 2 diabetes mellitus with hyperglycemia
CPT/HCPCS: 36415; 80053; 82043; 82570; 82607; 82746; 83036; 84153; 84439; 84443; 85025